=== PATIENT | male | born 1970 | race Caucasian/White ===

== ENCOUNTER → 2016-09-26 | Outpatient (CLI) | payer MEDICAID ==
[2016-09-26 09:50] LABS: ALANINE AMINOTRANSFERASE 25 U/L (21-72); ALBUMIN 4.2 g/dL (3.5-5.0); ALKALINE PHOSPHATASE 61 U/L (38-126); ANION GAP 13 (5-19); ASPARTATE AMINO TRANSFERASE 23 U/L (17-59); BILIRUBIN,TOTAL 0.3 mg/dL (0.2-1.3); BLOOD UREA NITROGEN 10 mg/dL (7-20); CALCIUM 8.9 mg/dL (8.4-10.2); CARBON DIOXIDE 20 mmol/L (22-30); CHLORIDE 97 mmol/L (98-107); CHOLESTEROL 161.85 mg/dL (0-200); CREATININE RESULT 0.62 mg/dL (0.52-1.25); Direct HDL 52 mg/dL (>40); GLUCOSE 88 mg/dL (75-110); POTASSIUM 4.6 mmol/L (3.6-5.0); SODIUM 129.5 mmol/L (137-145); TOTAL PROTEIN 6.8 g/dL (6.3-8.2); TRIGLYCERIDES 109 mg/dL (<150)
[2016-09-26 10:07] LABS: DIRECT LDL 106 mg/dL (<100)
== END ==
LOC: OD 08:19
PROVIDERS: ATTEND Internal Medicine
DX: R76.11 Nonspecific reaction to tuberculin skin test without active tuberculosis (principal); E78.00 Pure hypercholesterolemia, unspecified; I10 Essential (primary) hypertension; Z79.899 Other long term (current) drug therapy
CPT/HCPCS: 36415; 71020; 80053; 80061

== ENCOUNTER → 2017-06-23 | Outpatient (CLI) | payer MEDICAID ==
--- NOTE | 2017-06-23 17:20 | RADIOLOGY REPORT (SQ) ---
EXAM DESCRIPTION: ANKLE LEFT COMPLETE COMPLETED DATE/TIME: 06/23/2017 5:06 pm REASON FOR STUDY: PAIN IN LEFT ANKLE AND JOINTS OF LEFT FOOT M25.572 PAIN IN LEFT ANKLE AND JOINTS OF LEFT FOOT COMPARISON: None. NUMBER OF VIEWS: Three views. TECHNIQUE: AP, lateral, and oblique radiographic images acquired of the left ankle. LIMITATIONS: None. FINDINGS: MINERALIZATION: Normal. BONES: No acute fracture or dislocation. No worrisome bone lesions. JOINTS: No effusions. SOFT TISSUES: No soft tissue swelling. No foreign body. OTHER: No other significant finding. IMPRESSION: NEGATIVE STUDY OF THE LEFT ANKLE. NO RADIOGRAPHIC EVIDENCE OF ACUTE INJURY. TECHNICAL DOCUMENTATION: JOB ID: [id number] [employer]- All Rights Reserved
== END ==
LOC: OD 16:44
PROVIDERS: ATTEND Internal Medicine
DX: M25.572 Pain in left ankle and joints of left foot (principal); W19.XXXA Unspecified fall, initial encounter

== ENCOUNTER 2017-07-07 09:17 | Day surgery (SDC) | payer MEDICAID ==
[~2017-07-07 09:17] MED LIST: KETOROLAC TROMETHAMINE 0.45% 4 DROP/0.4 ML DROPERETTE OD PRN; MIDAZOLAM 2 MG/2 ML INJ ONE
[2017-07-07] MEDS: TETRACAINE HCL 0.5% OPH SOLN 0.6 ML DROPERETTE OD PRN ×2 (09:58→10:29)
[2017-07-07] MEDS: CYCLOPENTOLATE 0.2%/PHENYLEPHRINE 1% OPH SOLN 2 ML OD PRN ×3 (09:59→10:27)
[2017-07-07] MEDS: TROPICAMIDE 1% OPH SOLN 3 ML OD PRN ×3 (09:59→10:27)
[2017-07-07] MEDS: BESIFLOXACIN HCL 0.6% OPH SUSP 5 ML BOTTLE OD PRN ×4 (10:00→11:14)
[2017-07-07] MEDS ORDERED: TRYPAN BLUE 0.06 % OPH SOLN 0.5 ML DISP.SYRIN ONE (10:00)
[2017-07-07] MEDS ORDERED: LIDOCAINE 1% INJ-PF (10 MG/ML) 30 ML SDV ONE (10:01)
[2017-07-07] MEDS ORDERED: FENTANYL CITRATE INJ/PF 100 MCG/2 ML AMPUL ONE (10:25)
[2017-07-07] MEDS ORDERED: ONDANSETRON HCL INJ/PF 4 MG/2 ML SDV ONE (10:25)
[2017-07-07] MEDS ORDERED: PHENYLEPHRINE/KETOROLAC 1%-0.3% 4 ML VIAL ONE (10:42)
[2017-07-07] MEDS: LIDOCAINE 4% INJ/PF (40 MG/ML) 5 ML AMPUL OD PRN ×2 (10:45)
[2017-07-07] MEDS ORDERED: CHONDR SU A NA/HYALUR INTRAOC KIT (SURGICARE) ONE (10:45)
[2017-07-07] MEDS: BUPIVACAINE HCL 0.75% INJ/PF (7.5 MG/1 ML) 10 ML SDV OD PRN ×2 (10:45)
--- NOTE | 2017-07-07 12:03 | [facility] OPERATIVE REPORT E ---
[facility] Operative Report NAME: DENTON RAY AGE: 46Y DATE OF SURGERY: 07/07/2017 ROOM: PREOPERATIVE DIAGNOSIS: Mature cataract, right eye. POSTOPERATIVE DIAGNOSIS: Mature cataract, right eye. PROCEDURE PERFORMED: Complex cataract extraction with intraocular lens implant, right eye. SURGEON: MEY MOSQUEDA M.D. ANESTHESIA: Topical with MAC plus intraocular lidocaine. INDICATIONS FOR SURGERY: Mature cataract with no view of the fundus. Indications were complex mature cataract. No red reflex. Requiring the use of Trypan blue dye. PROCEDURE: The patient was brought to the Operating Room and placed on the operative table. Following tetracaine drops, topical anesthesia was administered. This consisted of instrument wipe pledgets soaked in a solution of 4% Xylocaine mixed with 0.75% Marcaine in a 1:2 ratio. A 2 x 1 cm pledget was placed in the superior fornix. A 1 x 1 cm pledget was placed in the inferior fornix. The eye was patched shut for 5 minutes. The patch was removed. The eye was sterilely prepped and draped in the usual manner. Lid speculum was placed in the eye. The pledgets were removed. 4-0 black silk sutures were placed around the superior and the inferior rectus muscles to be used as traction. A conjunctival peritomy was made at the 10 o'clock position. Hemostasis was obtained with bipolar cautery. A posterior limbal groove was created using a crescent knife and dissected anteriorly towards the cornea. A sharp point blade was used to create a paracentesis site at the 2 o'clock position. A 2.4 mm keratome was used to enter the anterior chamber through the groove.Following the incisions, an air bubble was placed through the side port incision and Trypan blue dye was injected inferior to the air bubble to stain the capsule. Viscoelastic was injected into the anterior chamber. An anterior capsulotomy was performed using Utrata forceps in a capsulorrhexis fashion. Hydrodissection and hydrodelineation were performed. Phacoemulsification was performed in qhcjcw-[id number]-[id number] technique. A total of 17 CDE phaco time was used. Following this, the I/A unit was used to remove residual cortex. Viscoelastic was injected into the capsular bag. Intraocular lens model SN60WF, 19.0 diopters, serial number [id number] was placed in the capsular bag. The I/A unit was used to remove residual viscoelastic. The wound was seen to be watertight under high and low pressure, and no sutures were placed. The intraocular lens was well centered. The pressure was adjusted in the eye to normal pressure. The 4-0 black silk sutures and lid speculum were removed. The eye was shielded after Besivance drops were placed. The patient tolerated the procedure well and was sent to the Recovery Room in good condition. DICTATING PHYSICIAN: MEY MOSQUEDA M.D. [id number] PHY#: [id number] ID: [id number] JOB#: [id number] ACCT: [id number] cc:MEY MOSQUEDA M.D. > MTDD
--- NOTE | 2017-07-07 12:08 | [facility] DISCHARGE SUMMARY E ---
[facility] Discharge Summary NAME: DENTON RAY AGE: 46Y ADMITTED: 07/07/2017 DISCHARGED: 07/07/2017 HOSPITAL COURSE: The patient is a 46-year-old gentleman who underwent uneventful complex cataract extraction with intraocular lens implant, right eye, on 07/07/2017. He will be discharged to home. He is instructed to resume preoperative medications, take Tylenol as needed for discomfort, to keep his eye shielded, to use Durezol, Ketorolac, and Vigamox at 3 p.m. and 8 p.m, and to follow up in my office in 1 day. DICTATING PHYSICIAN: MEY MOSQUEDA M.D. [id number] PHY#: [id number] ID: [id number] JOB#: [id number] ACCT: [id number] cc:MEY MOSQUEDA M.D. >
== END 2017-07-07 12:10 | disposition other institution (70) ==
LOC: SC 09:17
PROVIDERS: ATTEND Ophthalmology
PROC: 08RJ3JZ Replacement of Right Lens with Synthetic Substitute, Percutaneous Approach (ICD-10-PCS; principal; 2017-07-07 11:00)
DX: H25.21 Age-related cataract, morgagnian type, right eye (principal); H25.12 Age-related nuclear cataract, left eye; H52.13 Myopia, bilateral; I10 Essential (primary) hypertension; K21.9 Gastro-esophageal reflux disease without esophagitis; G20 Parkinson's disease; F99 Mental disorder, not otherwise specified; Z79.899 Other long term (current) drug therapy
CPT/HCPCS: 66982; V2632; J2250; J3490 ×7; J3010; J2405; C9447; 142

== ENCOUNTER → 2017-10-12 | Outpatient (CLI) | payer MEDICAID ==
--- NOTE | 2017-10-12 16:15 | RADIOLOGY REPORT (SQ) ---
EXAM DESCRIPTION: CHEST PA/LATERAL COMPLETED DATE/TIME: 10/12/2017 3:55 pm REASON FOR STUDY: NONSPECIFIC REACTION TO SKIN TEST W/O ACTIVE TUBERCULOSIS R76.11 NONSPECIFIC REAC TION TO SKIN TEST W/O ACTIVE TUBERCUL COMPARISON: None. NUMBER OF VIEWS: Two view. TECHNIQUE: Frontal and lateral radiographic views of the chest acquired. LIMITATIONS: None. FINDINGS: LUNGS AND PLEURA: No opacities, masses or pneumothorax. No pleural effusion. MEDIASTINUM AND HILAR STRUCTURES: No masses. No contour abnormalities. HEART AND VASCULAR STRUCTURES: Heart enlarged without failure. Aorta normal for age. BONES: No acute findings. HARDWARE: None in the chest. OTHER: No other significant finding. IMPRESSION: No acute abnormality in the chest. TECHNICAL DOCUMENTATION: JOB ID: [id number] [employer]- All Rights Reserved Reading location - IP/workstation name: [email or web address]
== END ==
LOC: OD 15:41
PROVIDERS: ATTEND Internal Medicine
DX: R76.11 Nonspecific reaction to tuberculin skin test without active tuberculosis (principal)
CPT/HCPCS: 71046

== ENCOUNTER → 2017-10-19 | Outpatient (CLI) | payer MEDICAID ==
[2017-10-19 09:31] LABS: ALANINE AMINOTRANSFERASE 39 U/L (21-72); ALBUMIN 4.5 g/dL (3.5-5.0); ALKALINE PHOSPHATASE 71 U/L (38-126); ASPARTATE AMINO TRANSFERASE 27 U/L (17-59); BILIRUBIN,DIRECT 0.2 mg/dL (0.0-0.4); BILIRUBIN,TOTAL 0.3 mg/dL (0.2-1.3); BLOOD UREA NITROGEN 17 mg/dL (7-20); CALCIUM 9.6 mg/dL (8.4-10.2); CHLORIDE 95 mmol/L (98-107); CHOLESTEROL 146.44 mg/dL (0-200); GLUCOSE 103 mg/dL (75-110); POTASSIUM 4.6 mmol/L (3.6-5.0); SODIUM 134.8 mmol/L (137-145); TOTAL PROTEIN 6.7 g/dL (6.3-8.2); TRIGLYCERIDES 80 mg/dL (<150)
[2017-10-19 09:33] LABS: ANION GAP 9 (5-19); CARBON DIOXIDE 31 mmol/L (22-30)
[2017-10-19 09:47] LABS: DIRECT LDL 79 mg/dL (<100)
== END ==
LOC: OD 07:31
PROVIDERS: ATTEND Internal Medicine
DX: E78.00 Pure hypercholesterolemia, unspecified (principal); I10 Essential (primary) hypertension; Z79.899 Other long term (current) drug therapy
CPT/HCPCS: 36415; 80053; 80061

== ENCOUNTER → 2018-06-16 | Outpatient (CLI) | payer MEDICAID ==
--- NOTE | 2018-06-16 16:29 | RADIOLOGY REPORT (SQ) ---
EXAM DESCRIPTION: KNEE RIGHT 4 VIEWS COMPLETED DATE/TIME: 06/16/2018 4:20 pm REASON FOR STUDY: PAIN IN RT KNEE M25.561 PAIN IN RIGHT KNEE injured yesterday, twisted right knee with continued pain COMPARISON: None. NUMBER OF VIEWS: Four views. TECHNIQUE: AP, lateral, and both oblique radiographic images acquired of the right knee. LIMITATIONS: None. FINDINGS: MINERALIZATION: Normal. BONES: No acute fracture or dislocation. No worrisome bone lesions. JOINT: No effusion. SOFT TISSUES: No soft tissue swelling. No radio-opaque foreign body. OTHER: No other significant finding. IMPRESSION: NEGATIVE STUDY OF THE RIGHT KNEE. NO RADIOGRAPHIC EVIDENCE OF ACUTE INJURY. TECHNICAL DOCUMENTATION: JOB ID: [id number] [employer]- All Rights Reserved Reading location - IP/workstation name: [email or web address]
== END ==
LOC: OD 15:50
PROVIDERS: ATTEND Internal Medicine
DX: M25.561 Pain in right knee (principal)

== ENCOUNTER 2018-11-29 16:14 | Emergency (ER) | payer MEDICAID ==
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
[2018-11-29 17:28] LABS: APPEARANCE,URINE CLEAR; BILIRUBIN,URINE NEGATIVE (NEGATIVE); COLOR,URINE STRAW; GLUCOSE, URINE NEGATIVE (NEGATIVE); KETONES,URINE NEGATIVE (NEGATIVE); LEUKOCYTE ESTERASE,URINE NEGATIVE (NEGATIVE); NITRITE,URINE NEGATIVE (NEGATIVE); PROTEIN,URINE NEGATIVE (NEGATIVE); URINE SPECIFIC GRAVITY 1.006; UROBILINOGEN,URINE NEGATIVE mg/dL (<2.0)
[2018-11-29 17:37] LABS: ABSOLUTE EOSINOPHILS # (AUTO) 0.2 10^3/uL (0.0-0.6); ABSOLUTE LYMPHOCYTES (AUTO) 1.9 10^3/uL (0.5-4.7); ABSOLUTE MONOCYTES (AUTO) 0.6 10^3/uL (0.1-1.4); ABSOLUTE NEUT (AUTO) 5.7 10^3/uL (1.7-8.2); BASOPHILS % (AUTO) 0.4 % (0-2); EOSINOPHILS % (AUTO) 2.8 % (0-6); HEMOGLOBIN 13.8 g/dL (13.5-17.0); LYMPHOCYTES % (AUTO) 22.8 % (13-45); MEAN CORPUSCULAR HEMOGLOBIN 29.6 pg (27.0-33.4); MEAN CORPUSCULAR HGB CONC 33.8 g/dL (32.0-36.0); MEAN CORPUSCULAR VOLUME 88 fl (80-97); MONOCYTES % (AUTO) 6.6 % (3-13); PLATELET COUNT 194 10^3/uL (150-450); RED BLOOD COUNT 4.67 10^6/uL (4.35-5.55); RED CELL DISTRIBUTION WIDTH 13.5 % (11.5-14.0); SEGMENTED NEUTROPHILS % (AUTO) 67.4 % (42-78); TOTAL CELLS COUNTED % (AUTO) 100 %; WHITE BLOOD COUNT 8.5 10^3/uL (4.0-10.5)
[2018-11-29 17:47] LABS: URINE AMPHETAMINES SCREEN NEGATIVE; URINE BARBITURATES SCREEN NEGATIVE; URINE BENZODIAZEPINES SCREEN NEGATIVE; URINE COCAINE SCREEN NEGATIVE; URINE MARIJUANA (THC) SCREEN NEGATIVE; URINE METHADONE SCREEN NEGATIVE; URINE PHENCYCLIDINE SCREEN NEGATIVE
[2018-11-29 17:57] LABS: ALANINE AMINOTRANSFERASE 29 U/L (21-72); ALBUMIN 4.3 g/dL (3.5-5.0); ALKALINE PHOSPHATASE 88 U/L (38-126); ANION GAP 12 (5-19); ASPARTATE AMINO TRANSFERASE 21 U/L (17-59); BILIRUBIN,DIRECT 0.2 mg/dL (0.0-0.4); BILIRUBIN,TOTAL 0.3 mg/dL (0.2-1.3); BLOOD UREA NITROGEN 8 mg/dL (7-20); CALCIUM 9.7 mg/dL (8.4-10.2); CARBON DIOXIDE 25 mmol/L (22-30); CHLORIDE 98 mmol/L (98-107); GLUCOSE 134 mg/dL (75-110); POTASSIUM 4.2 mmol/L (3.6-5.0); SODIUM 135.1 mmol/L (137-145); TOTAL PROTEIN 6.9 g/dL (6.3-8.2)
[2018-11-29 17:58] LABS: ACETAMINOPHEN < 10 ug/mL (10-30); ALCOHOL < 10 mg/dL (NONE DETECTED); SALICYLATE < 1.0 mg/dL (2.0-20.0)
--- NOTE | 2018-11-29 18:52 | EKG REPORT ---
SEVERITY:- NORMAL ECG - SINUS RHYTHM : Confirmed by: Cm Castellano MD 29-Nov-2018 18:51:19
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
[2018-11-30 14:12] VITALS: BP 126/64
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
== END 2018-11-30 15:10 | disposition home or self-care (01) ==
LOC: ER 16:14
DX: F25.0 Schizoaffective disorder, bipolar type (principal); F79 Unspecified intellectual disabilities; R45.6 Violent behavior; R45.4 Irritability and anger; I25.10 Atherosclerotic heart disease of native coronary artery without angina pectoris; I10 Essential (primary) hypertension; Z79.899 Other long term (current) drug therapy
CPT/HCPCS: 36415; 80053; 80307; 81001; 85025; 93005; 93010; 99285

== ENCOUNTER 2019-03-22 21:47 | Emergency (ER) | payer MEDICAID ==
[2019-03-22] MEDS ORDERED: DIPH/PERTUSS(ACELL)/TETANUS VAC/PF 0.5 ML SYR (>=10YO) IM ONE (22:34)
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
[2019-03-22 23:32] LABS: AMORPHOUS SEDIMENT,URINE TRACE /HPF; APPEARANCE,URINE SLIGHTLY-CLOUDY; BILIRUBIN,URINE NEGATIVE (NEGATIVE); COLOR,URINE YELLOW; GLUCOSE, URINE NEGATIVE (NEGATIVE); KETONES,URINE NEGATIVE (NEGATIVE); LEUKOCYTE ESTERASE,URINE NEGATIVE (NEGATIVE); NITRITE,URINE NEGATIVE (NEGATIVE); PROTEIN,URINE NEGATIVE (NEGATIVE); URINE SPECIFIC GRAVITY 1.012; UROBILINOGEN,URINE NEGATIVE mg/dL (<2.0)
[2019-03-22 23:46] LABS: ABSOLUTE BASOPHILS # (AUTO) 0.1 10^3/uL (0.0-0.2); ABSOLUTE EOSINOPHILS # (AUTO) 1.1 10^3/uL (0.0-0.6); ABSOLUTE LYMPHOCYTES (AUTO) 2.7 10^3/uL (0.5-4.7); ABSOLUTE MONOCYTES (AUTO) 0.5 10^3/uL (0.1-1.4); ABSOLUTE NEUT (AUTO) 4.1 10^3/uL (1.7-8.2); BASOPHILS % (AUTO) 0.6 % (0-2); HEMATOCRIT 38.1 % (37.9-51.0); HEMOGLOBIN 12.8 g/dL (13.5-17.0); LYMPHOCYTES % (AUTO) 32.2 % (13-45); MEAN CORPUSCULAR HEMOGLOBIN 29.8 pg (27.0-33.4); MEAN CORPUSCULAR HGB CONC 33.5 g/dL (32.0-36.0); MEAN CORPUSCULAR VOLUME 89 fl (80-97); MONOCYTES % (AUTO) 5.8 % (3-13); PLATELET COUNT 170 10^3/uL (150-450); RED BLOOD COUNT 4.27 10^6/uL (4.35-5.55); RED CELL DISTRIBUTION WIDTH 13.8 % (11.5-14.0); SEGMENTED NEUTROPHILS % (AUTO) 48.4 % (42-78); TOTAL CELLS COUNTED % (AUTO) 100 %; WHITE BLOOD COUNT 8.5 10^3/uL (4.0-10.5)
[2019-03-22 23:47] LABS: URINE AMPHETAMINES SCREEN NEGATIVE; URINE BARBITURATES SCREEN NEGATIVE; URINE BENZODIAZEPINES SCREEN NEGATIVE; URINE COCAINE SCREEN NEGATIVE; URINE MARIJUANA (THC) SCREEN NEGATIVE; URINE METHADONE SCREEN NEGATIVE; URINE PHENCYCLIDINE SCREEN NEGATIVE
[2019-03-23] LABS: ALBUMIN 4.3 g/dL (3.5-5.0); ALKALINE PHOSPHATASE 79 U/L (38-126); ANION GAP 10 (5-19); ASPARTATE AMINO TRANSFERASE 22 U/L (17-59); BILIRUBIN,DIRECT 0.1 mg/dL (0.0-0.4); BILIRUBIN,TOTAL 0.2 mg/dL (0.2-1.3); BLOOD UREA NITROGEN 13 mg/dL (7-20); CALCIUM 9.9 mg/dL (8.4-10.2); CARBON DIOXIDE 28 mmol/L (22-30); CHLORIDE 94 mmol/L (98-107); GLUCOSE 120 mg/dL (75-110); POTASSIUM 4.2 mmol/L (3.6-5.0); TOTAL PROTEIN 6.9 g/dL (6.3-8.2)
[2019-03-23 00:01] LABS: ACETAMINOPHEN < 10 ug/mL (10-30); ALCOHOL < 10 mg/dL (NONE DETECTED); SALICYLATE < 1.0 mg/dL (2.0-20.0)
[2019-03-23 08:28] VITALS: BP 131/67
--- NOTE | 2019-03-23 12:18 | ER Document Report ---
Doctor's Note Notes: 03/23/19 12:17 Patient seen and examined, has no complaints, feeling quite well, laceration to the right wrist is healing well, is more of a superficial abrasion. Patient is eager to go back to [facility]. We are still in discussions with [facility] as to how he can return there. We have made some adjustments to his medications. Patient here is receiving Trileptal, Latuda and Topamax. GENERAL: Alert, interacts well. No acute distress. HEAD: Normocephalic, atraumatic EYES: Pupils equal, round and reactive to light, extraocular movements intact. ENT: Oral mucosa moist, tongue midline. NECK: Full range of motion, supple, trachea midline. LUNGS: no respiratory distress. EXTREMITIES: Moves all 4 extremities spontaneously, no edema. No cyanosis. NEUROLOGICAL: Alert and oriented x3, normal speech. PSYCH: Normal mood, normal affect. SKIN: Warm, Dry, normal turgor, superficial abrasion volar aspect left wrist.
[2019-03-23] MEDS ORDERED: LURASIDONE HCL 40 MG TABLET PO SCH (12:30)
[2019-03-23] MEDS ORDERED: TOPIRAMATE 25 MG TABLET PO SCH (12:30)
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
[2019-03-23] MEDS ORDERED: LURASIDONE HCL 40 MG TABLET PO ONE (13:30)
[2019-03-23] MEDS ORDERED: OXCARBAZEPINE 150 MG TABLET PO SCH (14:00)
[2019-03-24] MEDS ORDERED: LURASIDONE HCL 40 MG TABLET PO SCH (08:00)
--- NOTE | 2019-03-24 14:14 | EKG REPORT ---
SEVERITY:- NORMAL ECG - SINUS RHYTHM : Confirmed by: Dominick Casas 24-Mar-2019 14:13:40
== END 2019-03-23 13:06 | disposition home or self-care (01) ==
LOC: ER 21:47
DX: F25.9 Schizoaffective disorder, unspecified (principal); S60.811A Abrasion of right wrist, initial encounter; X78.9XXA Intentional self-harm by unspecified sharp object, initial encounter; R45.850 Homicidal ideations; R45.851 Suicidal ideations; Z91.5 Personal history of self-harm; E78.00 Pure hypercholesterolemia, unspecified; I10 Essential (primary) hypertension
CPT/HCPCS: 93005; 36415; 80307 ×4; 85025; 80053; 81001; 90715; 93010; J3490 ×2

== ENCOUNTER 2019-06-24 09:40 | Observation (INO) | payer MEDICAID, OTHER ==
[2019-06-24 10:46] LABS: ABSOLUTE EOSINOPHILS # (AUTO) 0.3 10^3/uL (0.0-0.6); ABSOLUTE LYMPHOCYTES (AUTO) 1.8 10^3/uL (0.5-4.7); ABSOLUTE MONOCYTES (AUTO) 0.7 10^3/uL (0.1-1.4); ABSOLUTE NEUT (AUTO) 5.1 10^3/uL (1.7-8.2); BASOPHILS % (AUTO) 0.2 % (0-2); EOSINOPHILS % (AUTO) 3.4 % (0-6); HEMATOCRIT 44.5 % (37.9-51.0); HEMOGLOBIN 15.1 g/dL (13.5-17.0); LYMPHOCYTES % (AUTO) 22.9 % (13-45); MEAN CORPUSCULAR HEMOGLOBIN 30.5 pg (27.0-33.4); MEAN CORPUSCULAR HGB CONC 33.9 g/dL (32.0-36.0); MEAN CORPUSCULAR VOLUME 90 fl (80-97); MONOCYTES % (AUTO) 8.5 % (3-13); PLATELET COUNT 159 10^3/uL (150-450); RED BLOOD COUNT 4.95 10^6/uL (4.35-5.55); RED CELL DISTRIBUTION WIDTH 13.5 % (11.5-14.0); TOTAL CELLS COUNTED % (AUTO) 100 %; WHITE BLOOD COUNT 7.8 10^3/uL (4.0-10.5)
[2019-06-24 11:06] LABS: ALBUMIN 4.6 g/dL (3.5-5.0); ALKALINE PHOSPHATASE 86 U/L (38-126); ANION GAP 10 (5-19); ASPARTATE AMINO TRANSFERASE 22 U/L (17-59); BILIRUBIN,DIRECT 0.2 mg/dL (0.0-0.4); BILIRUBIN,TOTAL 0.3 mg/dL (0.2-1.3); BLOOD UREA NITROGEN 12 mg/dL (7-20); CALCIUM 9.9 mg/dL (8.4-10.2); CARBON DIOXIDE 30 mmol/L (22-30); CHLORIDE 98 mmol/L (98-107); CREATINE KINASE 114 U/L (55-170); GLUCOSE 110 mg/dL (75-110); POTASSIUM 4.1 mmol/L (3.6-5.0); TOTAL PROTEIN 7.7 g/dL (6.3-8.2)
--- NOTE | 2019-06-24 11:11 | ER Document Report ---
Entered by OTTO RIVERA SCRIBE 06/24/19 1058 Acting as scribe for:JEFFREY FOLEY IV, MD ED Syncope and Near Syncope - General Chief Complaint: Syncope Stated Complaint: FALL/SYNCOPE Time Seen by Provider: 06/24/19 10:56 Primary Care Provider: CORTNEY MEHTA MD [Primary Care Provider] - Follow up as needed Mode of Arrival: Medic Information source: Legal Guardian Cannot obtain history due to: Dementia Notes: This 48-year-old developmentally delayed male patient presents to the emergency department today with complaints of a syncopal event that occurred just prior to arrival. Patient has baseline dementia so history is being given by caregiver (Perla) at bedside. Perla reports that the patient is "high functioning" at baseline, reporting that he works x3 days a week at [employer]. Perla reports that the patient now only responding to noxious stimuli is very different from his baseline. Caregiver states that the patient seemed to be unsteady on his feet when he was ambulating just prior to passing out. History is limited. TRAVEL OUTSIDE OF THE [place] IN LAST 30 DAYS: No - Related Data Allergies/Adverse Reactions: No Known Allergies Allergy (Verified 01/02/19 09:46) Past Medical History - General Information source: Legal Guardian Cannot obtain history due to: Dementia - Social History Smoking Status: Never Smoker Cigarette use (# per day): No Frequency of alcohol use: None Lives with: [facility] Family History: Reviewed & Not Pertinent Patient has suicidal ideation: No Patient has homicidal ideation: No - Past Medical History Cardiac Medical History: Reports: Hx Coronary Artery Disease, Hx Hyperc holesterolemia, Hx Hypertension Psychiatric Medical History: Reports: Hx Depression - Immunizations Hx Diphtheria, Pertussis, Tetanus Vaccination: Yes Review of Systems - Review of Systems -: Yes ROS unobtainable due to patient's medical condition - dementia at baseline Physical Exam - Vital signs Vitals: Temp Resp BP Pulse Ox 97.6 F 15 135/97 H 96 06/24/19 10:18 06/24/19 10:18 06/24/19 10:18 06/24/19 10:18 - Notes Notes: Physical Exam: General: Hypersomnolent, responds to noxious and painful stimuli only. HEENT: Normocephalic. Atraumatic. PERRL. Oropharynx clear. Neck: Supple. Non-tender. Respiratory: No respiratory distress. Clear and equal breath sounds bilaterally. Cardiovascular: Regular rate and rhythm. Abdominal: Normal Inspection. Non-tender. No distension. Normal Bowel Sounds. Back: No gross abnormalities. Extremities: Moves all four extremities. Upper extremities: Normal inspection. Normal ROM. Lower extremities: Normal inspection. No edema. Normal ROM. Neurological: Dementia. Decreased level of responsiveness according to caregiver at bedside. Psychological: unable to assess Skin: Warm. Dry. Normal color. Course - Re-evaluation Re-evalutation: 06/24/19 13:21 Patient is currently arousable to voice but speech is slurred. He has no focal findings on his neurologic exam other than his slurred speech. Eye contact is good. - Vital Signs Vital signs: Temp Pulse Resp BP Pulse Ox 97.6 F 15 135/97 H 96 06/24/19 10:42 06/24/19 10:42 06/24/19 10:18 06/24/19 10:42 06/24/19 13:22 Vital signs reviewed by this MD. - Laboratory Result Diagrams: 06/24/19 10:25 06/24/19 10:25 - Diagnostic Test Radiology reviewed: Reports reviewed - EKG Interpretation by Me Additional EKG results interpreted by me: 06/24/19 12:08 EKG performed on 06/24/2019 was interpreted by this . Findings: Normal sinus rhythm, rate 85, P waves preceding QRS complexes, QRS complexes appear narrow, ST segments do not appear to be elevated or depressed in a pattern to suggest ischemia, injury or infarction. Impression normal sinus rhythm with nonspecific ST segments. - Consults DR ESTEVEZ Time consulted: 13:20 Reason for consultation: 06/24/19 13:23 Presyncope, dystaxia new onset Consulted provider: will see as inpatient Discharge - Discharge Clinical Impression: Pre-syncope, Ataxia Condition: Good Disposition: ADMITTED OBSERVATION Admitting Provider: Valencia (Hospitalist) Unit Admitted: Telemetry Referrals: CORTNEY MEHTA MD [Primary Care Provider] - Follow up as needed I personally performed the services described in the documentation, reviewed and edited the documentation which was dictated to the scribe in my presence, and it accurately records my words and actions.
[2019-06-24 11:18] LABS: CREATINE KINASE MB 3.37 ng/mL (<4.55)
[2019-06-24 11:20] LABS: TROPONIN I < 0.012 ng/mL
--- NOTE | 2019-06-24 12:16 | RADIOLOGY REPORT (SQ) ---
EXAM DESCRIPTION: CT HEAD WITHOUT COMPLETED DATE/TIME: 06/24/2019 11:48 am REASON FOR STUDY: dystaxia, fall onto face COMPARISON: None. TECHNIQUE: Axial images acquired through the brain without intravenous contrast. Images reviewed wit h bone, brain and subdural windows. Images stored on PACS. All CT scanners at this facility use dose modulation, iterative reconstruction, and/or weight based d osing when appropriate to reduce radiation dose to as low as reasonably achievable (ALARA). [facility]: Dose Right [facility]: CareDose [facility]: Dose Right [facility]: Teradose 4D [facility]: Smart Revolights RADIATION DOSE: CT Rad equipment meets quality standard of care and radiation dose reduction techniq ues were employed. CTDIvol: 53.2 mGy. DLP: 1070 mGy-cm.. LIMITATIONS: None. FINDINGS: VENTRICLES: Normal size and contour. CEREBRUM: No masses. No hemorrhage. No midline shift. Age appropriate white matter. No evidence for a cute infarction. CEREBELLUM: No masses. No hemorrhage. No alteration of density. No evidence for acute infarction. EXTRA-AXIAL SPACES: No fluid collections. ORBITS AND GLOBE: No intra- or extraconal masses. Normal contour of globe without masses. CALVARIUM: No fracture. PARANASAL SINUSES: No fluid or mucosal thickening. SOFT TISSUES: No mass or hematoma. OTHER: No other significant finding. IMPRESSION: NO ACUTE INTRACRANIAL FINDINGS. EVIDENCE OF ACUTE STROKE: NO. TECHNICAL DOCUMENTATION: JOB ID: [id number] [place]-72 Quality ID # 436: Final reports with documentation of one or more dose reduction techniques (e.g., Au tomated exposure control, adjustment of the mA and/or kV according to patient size, use of iterative reconstruction technique) 2010 [employer]- All Rights Reserved Reading location - IP/workstation name: [email or web address]
--- NOTE | 2019-06-24 12:19 | RADIOLOGY REPORT (SQ) ---
EXAM DESCRIPTION: CT FACIAL AREA WITHOUT COMPLETED DATE/TIME: 06/24/2019 11:48 am REASON FOR STUDY: dystaxia, fall onto face COMPARISON: None. TECHNIQUE: Noncontrasted images through the facial bones and orbits windowed for bone and soft tissu e. Additional coronal and sagittal reconstructed images reviewed. All images stored on PACS. All CT scanners at this facility use dose modulation, iterative reconstruction, and/or weight based d osing when appropriate to reduce radiation dose to as low as reasonably achievable (ALARA). [facility]: Dose Right [facility]: CareDose [facility]: Dose Right [facility]: Teradose 4D [facility]: Smart S[employer] RADIATION DOSE: CT Rad equipment meets quality standard of care and radiation dose reduction techniq ues were employed. CTDIvol: 30.4 mGy. DLP: 604 mGy-cm. mGy. LIMITATIONS: None. FINDINGS: FACIAL BONES: No fracture or bone lesion. ORBITS: Intact. No fracture. Symmetric intact globes and retroorbital soft tissues. PARANASAL SINUSES: Clear. No significant mucosal thickening, mass or fluid. No nasal polyps. Maxill silvano sinus outlets are patent. SOFT TISSUES: No mass or edema. INFERIOR BRAIN: Limited view. No acute findings. OTHER: No other significant finding. IMPRESSION: NO ACUTE FINDINGS. TECHNICAL DOCUMENTATION: JOB ID: [id number] [place]-72 Quality ID # 436: Final reports with documentation of one or more dose reduction techniques (e.g., Au tomated exposure control, adjustment of the mA and/or kV according to patient size, use of iterative reconstruction technique) 2010 [employer]- All Rights Reserved Reading location - IP/workstation name: [email or web address]
--- NOTE | 2019-06-24 12:24 | RADIOLOGY REPORT (SQ) ---
EXAM DESCRIPTION: CT CERVICAL SPINE WITHOUT COMPLETED DATE/TIME: 06/24/2019 11:48 am REASON FOR STUDY: dystaxia, fall onto face COMPARISON: None. TECHNIQUE: Axial images acquired through the cervical spine without intravenous contrast. Images re viewed with lung, soft tissue and bone windows. Reconstructed coronal and sagittal MPR images review ed. Images stored on PACS. All CT scanners at this facility use dose modulation, iterative reconstruction, and/or weight based d osing when appropriate to reduce radiation dose to as low as reasonably achievable (ALARA). [facility]: Dose Right [facility]: CareDose [facility]: Dose Right [facility]: Teradose 4D [facility]: Smart [employer] RADIATION DOSE: CT Rad equipment meets quality standard of care and radiation dose reduction techniq ues were employed. CTDIvol: 22.6 mGy. DLP: 462 mGy-cm. mGy. LIMITATIONS: None. FINDINGS: ALIGNMENT: Anatomic. MINERALIZATION: Normal. VERTEBRAL BODIES: No fractures or dislocation. DISCS: Multilevel disc space narrowing with osteophytes. FACETS, LATERAL MASSES, POSTERIOR ELEMENTS: Facet arthropathy. No fractures. No dislocation. No ac confed[place] sal[place] findings. HARDWARE: None in the spine. VISUALIZED RIBS: No fractures. LUNG APICES AND SOFT TISSUES: No significant or acute findings. OTHER: No other significant finding. IMPRESSION: NO ACUTE FINDINGS. TECHNICAL DOCUMENTATION: JOB ID: [id number] [place]-72 Quality ID # 436: Final reports with documentation of one or more dose reduction techniques (e.g., Au tomated exposure control, adjustment of the mA and/or kV according to patient size, use of iterative reconstruction technique) 2010 [employer]- All Rights Reserved Reading location - IP/workstation name: [email or web address]
[2019-06-24 12:30] LABS: APPEARANCE,URINE CLEAR; BILIRUBIN,URINE NEGATIVE (NEGATIVE); COLOR,URINE YELLOW; GLUCOSE, URINE NEGATIVE (NEGATIVE); KETONES,URINE NEGATIVE (NEGATIVE); LEUKOCYTE ESTERASE,URINE NEGATIVE (NEGATIVE); NITRITE,URINE NEGATIVE (NEGATIVE); PROTEIN,URINE NEGATIVE (NEGATIVE); URINE SPECIFIC GRAVITY 1.009; UROBILINOGEN,URINE NEGATIVE mg/dL (<2.0)
[2019-06-24 12:52] LABS: URINE AMPHETAMINES SCREEN NEGATIVE; URINE BARBITURATES SCREEN NEGATIVE; URINE BENZODIAZEPINES SCREEN NEGATIVE; URINE COCAINE SCREEN NEGATIVE; URINE MARIJUANA (THC) SCREEN NEGATIVE; URINE METHADONE SCREEN NEGATIVE; URINE PHENCYCLIDINE SCREEN NEGATIVE
--- NOTE | 2019-06-24 12:58 | EKG REPORT ---
SEVERITY:- NORMAL ECG - SINUS RHYTHM : Confirmed by: Jodie Woodard MD 24-Jun-2019 12:57:40
[2019-06-24 14:56] LABS: VENOUS BLOOD BASE EXCESS 4.1 mmol/L; VENOUS BLOOD HCO3 32.8 mmol/L (20-32); VENOUS BLOOD PH 7.31 (7.30-7.42)
[2019-06-24 15:01] LABS: VENOUS BLOOD PCO2 66.9 mmHg (35-63)
[2019-06-24 16:00] LABS: ARTERIAL BLOOD BASE EXCESS 1.2 mmol/L; ARTERIAL BLOOD H2CO3 1.62 mmol/L (1.05-1.35); ARTERIAL BLOOD HCO3 28.2 mmol/L (20-24); ARTERIAL BLOOD O2 SATURATION 93.7 % (94-98); ARTERIAL BLOOD PCO2 53.9 mmHg (35-45); ARTERIAL BLOOD PH 7.34 (7.35-7.45); ARTERIAL BLOOD PO2 73.4 mmHg (80-100); ARTERIAL BLOOD TOTAL CO2 29.9 mmol/L (23-27)
[2019-06-24 16:03] LABS: ARTERIAL BLOOD FIO2 ROOM AIR
--- NOTE | 2019-06-24 16:08 | PDOC H&P ---
History of Present Illness Admission Date/PCP: 06/24/19 13:39 CORTNEY MEHTA MD Patient complains of: lethargy History of Present Illness: DENTON RAY is a 48 year old male with a past medical history of developmental delay, schizoaffective disorder, Parkinson's disorder, ROSCOE on CPAP, hypertension and hyperlipidemia who was brought in due to increasing lethargy. Patient lives in a residential facility and has a medical provider/brick kiln burner. History is mostly obtained from patient's day brick kiln burner. She says that he was at his baseline until yesterday when she has noticed that patient has been lethargic and has been significantly more worse Tom P. She says this is very unusual for him as he is usually very alert and communicative. She says that he was also more restless yesterday. She has noticed that he has been unsteady on his feet and has been "wobbly" since yesterday. She says that they were on their way to his PCP to have him evaluated today. However under way out, patient was noted to be very unsteady on his feet again and fell. She denies syncope, seizure-like activity, urinary or fecal incontinence. Upon encounter, patient is sleeping and snoring. He is arousable and is oriented to person and place. Patient's brick kiln burner says that he is usually very awake and very talkative at this time of the day. She says that patient does not have family in [place]. Patient's surrogate medical decision maker her is his mother who is in [place]. She says the facility will contact his mother so she can give us her contact details. Past Medical History Cardiac Medical History: Reports: Coronary Artery Disease, Hyperlipidema, Hypertension Denies: Myocardial Infarction Pulmonary Medical History: Denies: Asthma, Bronchitis, Chronic Obstructive Pulmonary Disease (COPD), Pneumonia, Tuberculosis Neurological Medical History: Denies: Seizures - PARKINSON'S GI Medical History: Denies: Hepatitis, Hiatal Hernia Musculoskeltal Medical History: Denies: Arthritis Psychiatric Medical History: Reports: Depression Hematology: Denies: Anemia, Sickle Cell Disease Past Surgical History Past Surgical History: Denies: Pacemaker Social History Lives with: Assisted Smoking Status: Never Smoker Family History Family History: Reviewed & Not Pertinent Parental Family History Reviewed: Yes - No premature CAD Children Family History Reviewed: No Sibling(s) Family History Reviewed.: No Medication/Allergy Home Medications: Acetaminophen [Tylenol 325 mg Tablet] 500 mg PO Q6H 06/24/19 Bismuth Subsalicylate [Maalox] 1 dose PO DAILYP PRN 06/24/19 Carbidopa/Levodopa/Entacapone [Carbidopa-Levodopa 75 mg-Enta] 1 each PO TID 06/24/19 Desmopressin Acetate 0.4 mg PO QHS 06/24/19 Diphenhydramine HCl [Banophen] 50 mg PO TID 06/24/19 Escitalopram Oxalate [Lexapro] 20 mg PO QAM 06/24/19 Furosemide [Lasix 40 mg Tablet] 40 mg PO QAM 06/24/19 Guaifenesin/D-Methorphan Hb [Robitussin Dm S-F Cough Syrup] 10 ml PO Q6H 06/24/19 Guanfacine HCl 1 mg PO TID 06/24/19 Lisinopril [Prinivil 10 mg Tablet] 10 mg PO QAM 06/24/19 Loperamide HCl [Anti-Diarrheal] 2 mg PO DAILYP PRN 06/24/19 Magnesium Hydroxide [Milk of Magnesia] 1 each PO QHS 06/24/19 Mesalamine [Lialda] 1.2 gm PO QAM 06/24/19 Oxcarbazepine [Trileptal] 600 mg PO BID 06/24/19 Quetiapine Fumarate [Seroquel] 200 mg PO QAM 06/24/19 Quetiapine Fumarate [Seroquel] 600 mg PO QHS 06/24/19 Topiramate [Topamax 100 mg Tablet] 100 mg PO BID 06/24/19 Trihexyphenidyl HCl [Artane 5 mg Tablet] 5 mg PO Q12 06/24/19 Allergies/Adverse Reactions: No Known Allergies Allergy (Verified 01/02/19 09:46) Review of Systems All systems: reviewed and no additional remarkable complaints except as stated - As mentioned in HPI Physical Exam Vital Signs: Temp Pulse Resp BP Pulse Ox 97.6 F 15 135/97 H 96 06/24/19 10:42 06/24/19 10:42 06/24/19 10:18 06/24/19 10:42 General appearance: PRESENT: no acute distress, obese Head exam: PRESENT: atraumatic, normocephalic Eye exam: PRESENT: conjunctiva pink, EOMI, PERRLA. ABSENT: scleral icterus Ear exam: PRESENT: normal external ear exam Mouth exam: PRESENT: moist, tongue midline Neck exam: ABSENT: carotid bruit, JVD, lymphadenopathy, thyromegaly Respiratory exam: PRESENT: clear to auscultation thien. ABSENT: rales, rhonchi, wheezes Cardiovascular exam: PRESENT: RRR. ABSENT: diastolic murmur, rubs, systolic murmur Pulses: PRESENT: normal dorsalis pedis pul GI/Abdominal exam: PRESENT: normal bowel sounds, soft. ABSENT: distended, guarding, mass, organolmegaly, rebound, tenderness Rectal exam: PRESENT: deferred Neurological exam: PRESENT: alert, awake, oriented to person, oriented to place, CN II-XII grossly intact. ABSENT: motor sensory deficit Results Laboratory Results: 06/24/19 10:25 06/24/19 10:25 06/24/19 06/24/19 06/24/19 10:25 10:25 12:02 WBC 7.8 RBC 4.95 Hgb 15.1 Hct 44.5 MCV 90 MCH 30.5 MCHC 33.9 RDW 13.5 Plt Count 159 Seg Neutrophils % 65.0 Sodium 137.7 Potassium 4.1 Chloride 98 Carbon Dioxide 30 Anion Gap 10 BUN 12 Creatinine 1.00 Est GFR ( Amer) > 60 Glucose 110 Calcium 9.9 Total Bilirubin 0.3 AST 22 Alkaline Phosphatase 86 Ammonia Total Protein 7.7 Albumin 4.6 Urine Color YELLOW Urine Appearance CLEAR Urine pH 6.0 Ur Specific [place] 1.009 Urine Protein NEGATIVE Urine Glucose (UA) NEGATIVE Urine Ketones NEGATIVE Urine Blood NEGATIVE Urine Nitrite NEGATIVE Ur Leukocyte Esterase NEGATIVE Urine WBC (Auto) 1 06/24/19 06/24/19 12:02 12:57 WBC RBC Hgb Hct MCV MCH MCHC RDW Plt Count Seg Neutrophils % Sodium Potassium Chloride Carbon Dioxide Anion Gap BUN Creatinine Est GFR ( Amer) Glucose Calcium Total Bilirubin AST Alkaline Phosphatase Ammonia Cancelled < 8.7 L Total Protein Albumin Urine Color Urine Appearance Urine pH Ur Specific [place] Urine Protein Urine Glucose (UA) Urine Ketones Urine Blood Urine Nitrite Ur Leukocyte Esterase Urine WBC (Auto) 06/24/19 06/24/19 10:25 10:25 Creatine Kinase 114 CK-MB (CK-2) 3.37 Troponin I < 0.012 Impressions: Facial Bones CT 06/24/19 11:08 IMPRESSION: NO ACUTE FINDINGS. Head CT 06/24/19 11:08 IMPRESSION: NO ACUTE INTRACRANIAL FINDINGS. EVIDENCE OF ACUTE STROKE: NO. Cervical Spine CT 06/24/19 11:09 IMPRESSION: NO ACUTE FINDINGS. Assessment and Plan - Diagnosis (1) Acute encephalopathy Is this a current diagnosis for this admission?: Yes Plan: Initial work-up has been unremarkable. UDS is negative. CT imaging has been unrevealing. BMP is also normal. Will check a TSH. Also order a VBG to assess for CO2 retention. Stippler says that patient has ROSCOE and he is compliant with his CPAP. She is unsure however how long the patient been on CPAP and if he had any recent titration study done. (2) ROSCOE (obstructive sleep apnea) Is this a current diagnosis for this admission?: Yes Plan: BiPAP at night or when asleep. (3) HTN (hypertension) Is this a current diagnosis for this admission?: Yes (4) Parkinsonism Is this a current diagnosis for this admission?: Yes (5) Schizoaffective disorder Qualifiers: Schizoaffective disorder type: unspecified Qualified Code(s): F25.9 - Schizoaffective disorder, unspecified Is this a current diagnosis for this admission?: Yes - Time Time Spent with patient: 25-34 minutes
[2019-06-25] MEDS ORDERED: BISMUTH SUBSALICYLATE PO PRN (08:10)
[2019-06-25] MEDS: TOPIRAMATE 100 MG TABLET PO SCH ×2 (09:03→17:08)
[2019-06-25] MEDS: GUAIFENESIN/D-METHORPHAN (200-20 MG) SYRUP 10 ML PO SCH ×3 (09:03→20:24)
[2019-06-25] MEDS ORDERED: MAG HYDROX/AL HYDROX/SIMETH SUSP 30 ML UDCUP PO PRN (09:14)
[2019-06-25] MEDS ORDERED: LEVODOPA PO SCH (10:00)
[2019-06-25] MEDS ORDERED: (PENDING PHARMACY ID) (Guanfacine Hcl [Guanfacine Hcl] 1 MG) PO SCH (10:00)
[2019-06-25] MEDS ORDERED: [UNRECOGNIZED DRUG - OTHER] PO SCH (10:00)
[2019-06-25] MEDS ORDERED: ENTACAPONE PO SCH (10:00)
[2019-06-25] MEDS ORDERED: (PENDING PHARMACY ID) (Oxcarbazepine [Trileptal] 600 MG) PO SCH (10:00)
[2019-06-25] MEDS ORDERED: CARBIDOPA PO SCH (10:00)
[2019-06-25 13:31] LABS: ARTERIAL BLOOD BASE EXCESS 2.5 mmol/L; ARTERIAL BLOOD H2CO3 1.33 mmol/L (1.05-1.35); ARTERIAL BLOOD HCO3 27.6 mmol/L (20-24); ARTERIAL BLOOD O2 SATURATION 95.8 % (94-98); ARTERIAL BLOOD PCO2 44.2 mmHg (35-45); ARTERIAL BLOOD PH 7.41 (7.35-7.45); ARTERIAL BLOOD PO2 78.9 mmHg (80-100); ARTERIAL BLOOD TOTAL CO2 28.9 mmol/L (23-27)
[2019-06-25 13:32] LABS: ARTERIAL BLOOD FIO2 21%
[2019-06-25] MEDS: ACETAMINOPHEN 325 MG TABLET PO SCH ×4 (13:45→23:20)
[2019-06-25] MEDS: OXCARBAZEPINE 150 MG TABLET PO SCH ×2 (13:47→17:08)
[2019-06-25] MEDS: TRIHEXYPHENIDYL HCL 5 MG TABLET PO SCH ×2 (13:49→21:05)
--- NOTE | 2019-06-25 15:59 | PDOC PROGRESS REPORT ---
Subjective Progress Note for:: 06/25/19 Subjective:: DENTON RAY is a 48 year old male with a past medical history of developmental delay, schizoaffective disorder, Parkinson's disorder, ROSCOE on CPAP, hypertension and hyperlipidemia who was brought in due to increasing lethargy. Work-up was remarkable for significant hypercapnia likely causing his lethargy. Patient was placed on BIPAP last night. his mentation did significantly improve. Upon encounter this morning, he is awake and coherent. He appears to be back to his baseline mentation. He reports that he has not been using his CPAP at night because he tends to forget it. He later said that his CPAP machine is broken. Patient wandered out of the hospital later this morning and was brought in back after being found by [employer]. Reason For Visit: ACUTE ENCEPHALOPATHY,PRE-SYNCOPE Physical Exam Vital Signs: Temp Pulse Resp BP Pulse Ox 98.0 F 99 18 170/90 H 100 06/25/19 08:00 06/25/19 08:00 06/25/19 08:00 06/25/19 08:00 06/25/19 08:00 Intake & Output 06/24/19 06/25/19 06/26/19 06:59 06:59 06:59 Intake Total 1762 Balance 1762 Weight 259 lb 0.69 oz General appearance: PRESENT: no acute distress, well-developed, well-nourished Head exam: PRESENT: atraumatic, normocephalic Eye exam: PRESENT: conjunctiva pink, EOMI, PERRLA. ABSENT: scleral icterus Ear exam: PRESENT: normal external ear exam Mouth exam: PRESENT: moist, tongue midline Neck exam: ABSENT: carotid bruit, JVD, lymphadenopathy, thyromegaly Respiratory exam: PRESENT: clear to auscultation thien. ABSENT: rales, rhonchi, wheezes Cardiovascular exam: PRESENT: RRR. ABSENT: diastolic murmur, rubs, systolic murmur Pulses: PRESENT: normal dorsalis pedis pul GI/Abdominal exam: PRESENT: normal bowel sounds, soft. ABSENT: distended, guarding, mass, organolmegaly, rebound, tenderness Rectal exam: PRESENT: deferred Extremities exam: PRESENT: full ROM. ABSENT: calf tenderness, clubbing, pedal edema Neurological exam: PRESENT: alert, awake, oriented to person, oriented to place, CN II-XII grossly intact. ABSENT: motor sensory deficit Results Laboratory Results: 06/24/19 10:25 06/24/19 10:25 06/24/19 06/24/19 06/25/19 10:25 13:42 13:04 Carbonic Acid 1.62 H 1.33 HCO3/H2CO3 Ratio 17:1 20:1 ABG pH 7.34 L 7.41 ABG pCO2 53.9 H 44.2 ABG pO2 73.4 L 78.9 L ABG HCO3 28.2 H 27.6 H ABG O2 Saturation 93.7 L 95.8 ABG Base Excess 1.2 2.5 FiO2 ROOM AIR 21% TSH 2.46 06/24/19 06/24/19 10:25 10:25 Creatine Kinase 114 CK-MB (CK-2) 3.37 Troponin I < 0.012 Impressions: Facial Bones CT 06/24/19 11:08 IMPRESSION: NO ACUTE FINDINGS. Head CT 06/24/19 11:08 IMPRESSION: NO ACUTE INTRACRANIAL FINDINGS. EVIDENCE OF ACUTE STROKE: NO. Cervical Spine CT 06/24/19 11:09 IMPRESSION: NO ACUTE FINDINGS. Assessment and Plan - Diagnosis (1) Acute encephalopathy Is this a current diagnosis for this admission?: Yes Plan: 06/24: Initial work-up has been unremarkable. UDS is negative. CT imaging has been unrevealing. BMP is also normal. Will check a TSH. Also order a VBG to assess for CO2 retention. Field Crop Grower says that patient has ROSCOE and he is compliant with his CPAP. She is unsure however how long the patient been on CPAP and if he had any recent titration study done. 06/25: Resolved. Blood gas showed acute on chronic respiratory acidosis. Likely from ROSCOE. Patient this morning says that he actually does not use his CPAP at night as he tends to forget it. He later said that his CPAP machine is broken. Will verify with ice guard skating rink if his CPAP is indeed working. We will try to get CPAP settings and see if we could do some changes with the settings. Otherwise he will likely need possible CPAP titration study. (2) ROSCOE (obstructive sleep apnea) Is this a current diagnosis for this admission?: Yes Plan: BiPAP at night or when asleep. (3) HTN (hypertension) Is this a current diagnosis for this admission?: Yes Plan: Home meds resumed. (4) Parkinsonism Is this a current diagnosis for this admission?: Yes Plan: Home meds resumed. (5) Schizoaffective disorder Qualifiers: Schizoaffective disorder type: unspecified Qualified Code(s): F25.9 - Schizoaffective disorder, unspecified Is this a current diagnosis for this admission?: Yes Plan: Home meds resumed. - Time Time Spent with patient: 25-34 minutes
[2019-06-25] MEDS ORDERED: (PENDING PHARMACY ID) (Quetiapine Fumarate [Seroquel] 600 MG) PO SCH (22:00)
[2019-06-25] MEDS ORDERED: DESMOPRESSIN ACETATE 0.4 MG PO SCH (22:00)
[2019-06-25] MEDS ORDERED: MAGNESIUM HYDROXIDE SUSP 30 ML UDCUP PO SCH (22:00)
[2019-06-25] MEDS ORDERED: DESMOPRESSIN ACETATE 0.1 MG TABLET PO SCH (22:00)
[2019-06-25] MEDS ORDERED: QUETIAPINE FUMARATE 100 MG TABLET PO SCH (22:00)
[2019-06-25] MEDS ORDERED: MAGNESIUM HYDROXIDE PO SCH (22:00)
[2019-06-26] MEDS: GUAIFENESIN/D-METHORPHAN (200-20 MG) SYRUP 10 ML PO SCH ×2 (06:10→08:08)
[2019-06-26] MEDS: ACETAMINOPHEN 325 MG TABLET PO SCH (07:38)
[2019-06-26] MEDS ORDERED: (PENDING PHARMACY ID) (Quetiapine Fumarate [Seroquel] 200 MG) PO SCH (08:00)
[2019-06-26] MEDS ORDERED: FUROSEMIDE 40 MG TABLET PO SCH (08:00)
[2019-06-26] MEDS ORDERED: QUETIAPINE FUMARATE 100 MG TABLET PO SCH (08:00)
[2019-06-26] MEDS ORDERED: MESALAMINE 1.2 GM PO SCH (08:00)
[2019-06-26] MEDS ORDERED: LISINOPRIL 10 MG TABLET PO SCH (08:00)
[2019-06-26] MEDS: OXCARBAZEPINE 150 MG TABLET PO SCH (10:34)
[2019-06-26] MEDS: TOPIRAMATE 100 MG TABLET PO SCH (10:34)
[2019-06-26] MEDS: TRIHEXYPHENIDYL HCL 5 MG TABLET PO SCH (10:36)
[2019-06-26 12:32] VITALS: BP 134/78
--- NOTE | 2019-06-26 18:20 | PDOC DISCHARGE SUMMARY ---
Impression - Admit/DC Date/PCP Admission Date/Primary Care Provider: 06/24/19 13:39 CORTNEY MEHTA MD Discharge Date: 06/26/19 - Discharge Diagnosis (1) Acute encephalopathy Is this a current diagnosis for this admission?: Yes (2) ROSCOE (obstructive sleep apnea) Is this a current diagnosis for this admission?: Yes (3) HTN (hypertension) Is this a current diagnosis for this admission?: Yes (4) Parkinsonism Is this a current diagnosis for this admission?: Yes (5) Schizoaffective disorder Is this a current diagnosis for this admission?: Yes - Additional Information Discharge Diet: As Tolerated Discharge Activity: Activity As Tolerated Referrals: HARRISON'Piyush,FELIX [Other] Home Medications: Acetaminophen [Tylenol 325 mg Tablet] 500 mg PO Q6H 06/24/19 Bismuth Subsalicylate [Maalox] 1 dose PO DAILYP PRN 06/24/19 Carbidopa/Levodopa/Entacapone [Carbidopa-Levodopa 75 mg-Enta] 1 each PO TID 06/24/19 Desmopressin Acetate 0.4 mg PO QHS 06/24/19 Diphenhydramine HCl [Banophen] 50 mg PO TID 06/24/19 Escitalopram Oxalate [Lexapro] 20 mg PO QAM 06/24/19 Furosemide [Lasix 40 mg Tablet] 40 mg PO QAM 06/24/19 Guaifenesin/D-Methorphan Hb [Robitussin Dm S-F Cough Syrup] 10 ml PO Q6H 06/24/19 Guanfacine HCl 1 mg PO TID 06/24/19 Lisinopril [Prinivil 10 mg Tablet] 10 mg PO QAM 06/24/19 Loperamide HCl [Anti-Diarrheal] 2 mg PO DAILYP PRN 06/24/19 Magnesium Hydroxide [Milk of Magnesia] 1 each PO QHS 06/24/19 Mesalamine [Lialda] 1.2 gm PO QAM 06/24/19 Oxcarbazepine [Trileptal] 600 mg PO BID 06/24/19 Quetiapine Fumarate [Seroquel] 200 mg PO QAM 06/24/19 Quetiapine Fumarate [Seroquel] 600 mg PO QHS 06/24/19 Topiramate [Topamax 100 mg Tablet] 100 mg PO BID 06/24/19 Trihexyphenidyl HCl [Artane 5 mg Tablet] 5 mg PO Q12 06/24/19 History of Present Illiness History of Present Illness: DENTON RAY is a 48 year old male with a past medical history of developmental delay, schizoaffective disorder, Parkinson's disorder, ROSCOE on CPAP, hypertension and hyperlipidemia who was brought in due to increasing lethargy. Patient lives in a residential facility and has a medical provider/padded products finisher. History is mostly obtained from patient's day padded products finisher. She says that he was at his baseline until yesterday when she has noticed that patient has been lethargic and has been significantly more worse Tom P. She says this is very unusual for him as he is usually very alert and communicative. She says that he was also more restless yesterday. She has noticed that he has been unsteady on his feet and has been "wobbly" since yesterday. She says that they were on their way to his PCP to have him evaluated today. However under way out, patient was noted to be very unsteady on his feet again and fell. She denies syncope, seizure-like activity, urinary or fecal incontinence. Upon encounter, patient is sleeping and snoring. He is arousable and is oriented to person and place. Patient's padded products finisher says that he is usually very awake and very talkative at this time of the day. She says that patient does not have family in [place]. Patient's surrogate medical decision maker her is his mother who is in [place]. She says the facility will contact his mother so she can give us her contact details. Hospital Course Hospital Course: DENTON RAY is a 48 year old male with a past medical history of developmental delay, schizoaffective disorder, Parkinson's disorder, ROSCOE on CPAP, hypertension and hyperlipidemia who was brought in due to increasing lethargy. Work-up was remarkable for significant hypercapnia likely causing his lethargy. ABG showed acute on chronic respiratory acidosis. Patient was placed on BIPAP. His mentation did significantly improve. His repeat ABG also showed resolution of hypercapnia with BiPAP therapy. Patient returned to his baseline mentation. Is able to ambulate the hallways on room air without any desaturation or acute issues nor any unsteady gait or balance problems. He reports that he has not been using his CPAP at night because he tends to forget it. He later said that his CPAP machine is broken. Facility personnel was recommended to ensure that patient is compliant with his CPAP at night. Also recommended close follow-up with PCP for referral for possible CPAP titration study if deemed warranted. Physical Exam Vital Signs: Temp Pulse Resp BP Pulse Ox 98.5 F 96 16 134/78 H 100 06/26/19 12:05 06/26/19 12:05 06/26/19 12:05 06/26/19 12:05 06/26/19 12:05 Intake & Output 06/25/19 06/26/19 06/27/19 06:59 06:59 06:59 Intake Total 1762 1240 596 Balance 1762 1240 596 Weight 259 lb 0.69 oz 259 lb 0.69 oz General appearance: PRESENT: no acute distress, well-developed, well-nourished Head exam: PRESENT: atraumatic, normocephalic Eye exam: PRESENT: conjunctiva pink, EOMI, PERRLA. ABSENT: scleral icterus Ear exam: PRESENT: normal external ear exam Mouth exam: PRESENT: moist, tongue midline Neck exam: ABSENT: carotid bruit, JVD, lymphadenopathy, thyromegaly Respiratory exam: PRESENT: clear to auscultation thien. ABSENT: rales, rhonchi, wheezes Cardiovascular exam: PRESENT: RRR. ABSENT: diastolic murmur, rubs, systolic murmur Pulses: PRESENT: normal dorsalis pedis pul GI/Abdominal exam: PRESENT: normal bowel sounds, soft. ABSENT: distended, guarding, mass, organolmegaly, rebound, tenderness Rectal exam: PRESENT: deferred Neurological exam: PRESENT: alert, awake, oriented to person, oriented to place, CN II-XII grossly intact. ABSENT: motor sensory deficit Results Laboratory Results: WBC 7.8 10^3/uL (4.0-10.5) 06/24/19 10:25 RBC 4.95 10^6/uL (4.35-5.55) 06/24/19 10:25 Hgb 15.1 g/dL (13.5-17.0) 06/24/19 10:25 Hct 44.5 % (37.9-51.0) 06/24/19 10:25 MCV 90 fl (80-97) 06/24/19 10:25 MCH 30.5 pg (27.0-33.4) 06/24/19 10:25 MCHC 33.9 g/dL (32.0-36.0) 06/24/19 10:25 RDW 13.5 % (11.5-14.0) 06/24/19 10:25 Plt Count 159 10^3/uL (150-450) 06/24/19 10:25 Lymph % (Auto) 22.9 % (13-45) 06/24/19 10:25 [place] % (Auto) 8.5 % (3-13) 06/24/19 10:25 Eos % (Auto) 3.4 % (0-6) 06/24/19 10:25 Baso % (Auto) 0.2 % (0-2) 06/24/19 10:25 Absolute Neuts (auto) 5.1 10^3/uL (1.7-8.2) 06/24/19 10:25 Absolute Lymphs (auto) 1.8 10^3/uL (0.5-4.7) 06/24/19 10:25 Absolute Monos (auto) 0.7 10^3/uL (0.1-1.4) 06/24/19 10:25 Absolute Eos (auto) 0.3 10^3/uL (0.0-0.6) 06/24/19 10:25 Absolute Basos (auto) 0.0 10^3/uL (0.0-0.2) 06/24/19 10:25 Seg Neutrophils % 65.0 % (42-78) 06/24/19 10:25 Carbonic Acid 1.33 mmol/L (1.05-1.35) 06/25/19 13:04 HCO3/H2CO3 Ratio 20:1 06/25/19 13:04 ABG pH 7.41 (7.35-7.45) 06/25/19 13:04 ABG pCO2 44.2 mmHg (35-45) 06/25/19 13:04 ABG pO2 78.9 mmHg (80-100) L 06/25/19 13:04 ABG HCO3 27.6 mmol/L (20-24) H 06/25/19 13:04 ABG Total CO2 28.9 mmol/L (23-27) H 06/25/19 13:04 ABG O2 Saturation 95.8 % (94-98) 06/25/19 13:04 ABG Base Excess 2.5 mmol/L 06/25/19 13:04 VBG pH 7.31 (7.30-7.42) 06/24/19 14:36 VBG pCO2 66.9 mmHg (35-63) H* 06/24/19 14:36 VBG HCO3 32.8 mmol/L (20-32) H 06/24/19 14:36 VBG Base Excess 4.1 mmol/L 06/24/19 14:36 FiO2 21% 06/25/19 13:04 Sodium 137.7 mmol/L (137-145) 06/24/19 10:25 Potassium 4.1 mmol/L (3.6-5.0) 06/24/19 10:25 Chloride 98 mmol/L (98-107) 06/24/19 10:25 Carbon Dioxide 30 mmol/L (22-30) 06/24/19 10:25 Anion Gap 10 (5-19) 06/24/19 10:25 BUN 12 mg/dL (7-20) 06/24/19 10:25 Creatinine 1.00 mg/dL (0.52-1.25) 06/24/19 10:25 Est GFR ( Amer) > 60 (>60) 06/24/19 10:25 Est GFR (MDRD) Non-Af > 60 (>60) 06/24/19 10:25 Glucose 110 mg/dL (75-110) 06/24/19 10:25 Calcium 9.9 mg/dL (8.4-10.2) 06/24/19 10:25 Total Bilirubin 0.3 mg/dL (0.2-1.3) 06/24/19 10:25 Direct Bilirubin 0.2 mg/dL (0.0-0.4) 06/24/19 10:25 Neonat Total Bilirubin Not Reportable 06/24/19 10:25 Neonat Direct Bilirubin Not Reportable 06/24/19 10:25 Neonat Indirect Bili Not Reportable 06/24/19 10:25 AST 22 U/L (17-59) 06/24/19 10:25 ALT 12 U/L (<50) 06/24/19 10:25 Alkaline Phosphatase 86 U/L (38-126) 06/24/19 10:25 Ammonia < 8.7 umol/L (9-33) L 06/24/19 12:57 Creatine Kinase 114 U/L (55-170) 06/24/19 10:25 CK-MB (CK-2) 3.37 ng/mL (<4.55) 06/24/19 10:25 Troponin I < 0.012 ng/mL 06/24/19 10:25 Total Protein 7.7 g/dL (6.3-8.2) 06/24/19 10:25 Albumin 4.6 g/dL (3.5-5.0) 06/24/19 10:25 TSH 2.46 uIU/mL (0.47-4.68) 06/24/19 10:25 Urine Color YELLOW 06/24/19 12:02 Urine Appearance CLEAR 06/24/19 12:02 Urine pH 6.0 (5.0-9.0) 06/24/19 12:02 Ur Specific Topping 1.009 06/24/19 12:02 Urine Protein NEGATIVE mg/dL (NEGATIVE) 06/24/19 12:02 Urine Glucose (UA) NEGATIVE mg/dL (NEGATIVE) 06/24/19 12:02 Urine Ketones NEGATIVE mg/dL (NEGATIVE) 06/24/19 12:02 Urine Blood NEGATIVE (NEGATIVE) 06/24/19 12:02 Urine Nitrite NEGATIVE (NEGATIVE) 06/24/19 12:02 Urine Nitrite (Reflex) NEGATIVE (NEGATIVE) 06/24/19 12:02 Urine Bilirubin NEGATIVE (NEGATIVE) 06/24/19 12:02 Urine Urobilinogen NEGATIVE mg/dL (<2.0) 06/24/19 12:02 Ur Leukocyte Esterase NEGATIVE (NEGATIVE) 06/24/19 12:02 Leukocyte Esterase Rfl NEGATIVE (NEGATIVE) 06/24/19 12:02 Urine WBC (Auto) 1 /HPF 06/24/19 12:02 U Hyaline Cast (Auto) 12 /LPF 06/24/19 12:02 Urine WBC (Reflex) 1 /HPF 06/24/19 12:02 Urine Mucus (Auto) RARE /LPF 06/24/19 12:02 Urine Ascorbic Acid NEGATIVE (NEGATIVE) 06/24/19 12:02 Urine Opiates Screen NEGATIVE 06/24/19 12:02 Urine Methadone Screen NEGATIVE 06/24/19 12:02 Ur Barbiturates Screen NEGATIVE 06/24/19 12:02 Ur Phencyclidine Scrn NEGATIVE 06/24/19 12:02 Ur Amphetamines Screen NEGATIVE 06/24/19 12:02 U Benzodiazepines Scrn NEGATIVE 06/24/19 12:02 Urine Cocaine Screen NEGATIVE 06/24/19 12:02 U Marijuana (THC) Screen NEGATIVE 06/24/19 12:02 Serum Alcohol < 10 mg/dL (NONE DETECTED) 06/24/19 10:25 06/24/19 10:25 CK-MB (CK-2) 3.37 Troponin I < 0.012 Impressions: Facial Bones CT 06/24/19 11:08 IMPRESSION: NO ACUTE FINDINGS. Head CT 06/24/19 11:08 IMPRESSION: NO ACUTE INTRACRANIAL FINDINGS. EVIDENCE OF ACUTE STROKE: NO. Cervical Spine CT 06/24/19 11:09 IMPRESSION: NO ACUTE FINDINGS. Stroke Is this a Stroke Patient?: No Acute Heart Failure - Is this a Heart Failure Patient?: No
== END 2019-06-26 12:42 | disposition short-term general hospital (02) ==
LOC: ER 09:40 → EH 13:39 → 5 17:44
PROVIDERS: ADMIT Internal Medicine; ATTEND Internal Medicine
DX: G93.40 Encephalopathy, unspecified (principal); G47.33 Obstructive sleep apnea (adult) (pediatric); I10 Essential (primary) hypertension; G20 Parkinson's disease; F25.9 Schizoaffective disorder, unspecified; R62.50 Unspecified lack of expected normal physiological development in childhood; E87.2 Acidosis; R06.89 Other abnormalities of breathing; I25.10 Atherosclerotic heart disease of native coronary artery without angina pectoris; R55 Syncope and collapse; E66.9 Obesity, unspecified; F03.91 Unspecified dementia, unspecified severity, with behavioral disturbance; Z91.83 Wandering in diseases classified elsewhere; Z79.899 Other long term (current) drug therapy
CPT/HCPCS: 93005; 99285; 36415; 82553; 80307 ×2; 82140; 82803 ×3; 82550; 84443; 85025; 80053; 81001; 84484; 70450; 70486; 72125; 93010; 36600; 94660 ×3; G0378 ×4; J3490 ×17

== ENCOUNTER 2019-08-01 08:11 | Emergency (ER) | payer MEDICAID ==
[2019-08-01 08:46] LABS: ABSOLUTE EOSINOPHILS # (AUTO) 0.5 10^3/uL (0.0-0.6); ABSOLUTE MONOCYTES (AUTO) 0.6 10^3/uL (0.1-1.4); ABSOLUTE NEUT (AUTO) 5.6 10^3/uL (1.7-8.2); BASOPHILS % (AUTO) 0.3 % (0-2); HEMATOCRIT 47.2 % (37.9-51.0); HEMOGLOBIN 16.2 g/dL (13.5-17.0); LYMPHOCYTES % (AUTO) 22.9 % (13-45); MEAN CORPUSCULAR HEMOGLOBIN 30.7 pg (27.0-33.4); MEAN CORPUSCULAR HGB CONC 34.2 g/dL (32.0-36.0); MEAN CORPUSCULAR VOLUME 90 fl (80-97); MONOCYTES % (AUTO) 6.9 % (3-13); PLATELET COUNT 166 10^3/uL (150-450); RED BLOOD COUNT 5.27 10^6/uL (4.35-5.55); RED CELL DISTRIBUTION WIDTH 13.2 % (11.5-14.0); SEGMENTED NEUTROPHILS % (AUTO) 63.9 % (42-78); TOTAL CELLS COUNTED % (AUTO) 100 %; WHITE BLOOD COUNT 8.7 10^3/uL (4.0-10.5)
[2019-08-01 09:15] LABS: ALBUMIN 4.6 g/dL (3.5-5.0); ALKALINE PHOSPHATASE 93 U/L (38-126); ANION GAP 12 (5-19); ASPARTATE AMINO TRANSFERASE 23 U/L (17-59); BILIRUBIN,DIRECT 0.2 mg/dL (0.0-0.4); BILIRUBIN,TOTAL 0.4 mg/dL (0.2-1.3); BLOOD UREA NITROGEN 16 mg/dL (7-20); CALCIUM 9.6 mg/dL (8.4-10.2); CARBON DIOXIDE 28 mmol/L (22-30); CHLORIDE 95 mmol/L (98-107); CREATINE KINASE 64 U/L (55-170); GLUCOSE 105 mg/dL (75-110); TOTAL PROTEIN 7.9 g/dL (6.3-8.2)
[2019-08-01 09:26] LABS: CREATINE KINASE MB 1.86 ng/mL (<4.55)
[2019-08-01 09:27] LABS: TROPONIN I < 0.012 ng/mL
[2019-08-01 09:35] LABS: APPEARANCE,URINE CLEAR; BILIRUBIN,URINE NEGATIVE (NEGATIVE); COLOR,URINE YELLOW; GLUCOSE, URINE NEGATIVE (NEGATIVE); KETONES,URINE NEGATIVE (NEGATIVE); LEUKOCYTE ESTERASE,URINE NEGATIVE (NEGATIVE); NITRITE,URINE NEGATIVE (NEGATIVE); PROTEIN,URINE NEGATIVE (NEGATIVE); URINE SPECIFIC GRAVITY 1.012; UROBILINOGEN,URINE NEGATIVE mg/dL (<2.0)
[2019-08-01] MEDS ORDERED: NORMAL SALINE 1000 ML 1,000 ML IV ONE (09:39)
--- NOTE | 2019-08-01 10:32 | ER Document Report ---
ED General - General Chief Complaint: Blood Pressure Problem Stated Complaint: FALL/DIZZINESS Time Seen by Provider: 08/01/19 09:30 Primary Care Provider: CORTNEY MEHTA MD [Primary Care Provider] - Follow up as needed TRAVEL OUTSIDE OF THE [place] IN LAST 30 DAYS: No - HPI Notes: Patient is a 48-year-old male who presents emergency department for evaluation of a syncopal episode. He was in the bathroom, having urinated, then had a syncopal episode. He denies hitting his head. He did think he passed out. He was easily arousable by staff, and brought to the ED for further evaluation. The patient right now denies any visual changes, no pain. He is eating and drinking normally. He did have his lisinopril this morning, his blood pressure was 120. - Related Data Allergies/Adverse Reactions: No Known Allergies Allergy (Verified 01/02/19 09:46) Past Medical History - General Information source: Patient, Outside Facility Records - Social History Smoking Status: Never Smoker Family History: Reviewed & Not Pertinent Patient has suicidal ideation: No Patient has homicidal ideation: No - Past Medical History Cardiac Medical History: Reports: Hx Coronary Artery Disease, Hx Hypercholesterolemia, Hx Hypertension Denies: Hx Heart Attack Pulmonary Medical History: Reports: Hx Sleep Apnea Denies: Hx Asthma, Hx Bronchitis, Hx COPD, Hx Pneumonia, Hx Tuberculosis Neurological Medical History: Denies: Hx Cerebrovascular Accident, Hx Seizures - PARKINSON'S Renal/ Medical History: Denies: Hx Peritoneal Dialysis GI Medical History: Denies: Hx Hepatitis, Hx Hiatal Hernia, Hx Ulcer - ULCERATIVE COLITIS Musculoskeletal Medical History: Denies Hx Arthritis Psychiatric Medical History: Reports: Hx Depression Infectious Medical History: Denies: Hx Hepatitis Past Surgical History: Denies: Hx Open Heart Surgery, Hx Pacemaker - Immunizations Hx Diphtheria, Pertussis, Tetanus Vaccination: Yes Review of Systems - Review of Systems Constitutional: No symptoms reported EENT: No symptoms reported Cardiovascular: See HPI Respiratory: No symptoms reported Gastrointestinal: No symptoms reported Genitourinary: No symptoms reported Musculoskeletal: No symptoms reported Skin: No symptoms reported Neurological/Psychological: No symptoms reported Physical Exam - Vital signs Vitals: Pulse BP 85 116/81 08/01/19 08:18 08/01/19 08:18 - Notes Notes: Vital signs reviewed, please refer to chart. Head is normocephalic, atraumatic. I cannot appreciate any sort of hematoma or tenderness. Pupils equal round, reactive to light. Neck is supple without meningismus. He has no cervical spine midline tenderness, no paraspinal musculature tenderness appreciated. Heart is regular rate and rhythm. Lungs are clear to auscultation bilaterally. Abdomen is soft, nontender, normoactive bowel sounds throughout. Extremities without cyanosis, clubbing. Posterior calves are nontender. Peripheral pulses are equal. Skin is warm and dry. Patient is awake, alert, oriented x3. Cranial nerves II - XII are grossly intact without focal neurological deficits. Strength is plus 5 out of 5 bilateral upper and lower extremities. Sensation is intact. Reflexes symmetrical. Intact [id number], rapid alternating movements, [id number]. Course - Re-evaluation Re-evalutation: 08/01/19 10:32 Patient presents to the emergency department for evaluation. He was placed on a order detailer. When EMS picked the patient up, they did orthostatics, which were found to be positive. He was given a liter of fluids here, he remained significantly orthostatic. A second liter is started. His laboratory investigations are largely unremarkable. He is on 40 mg of Lasix daily. I am currently evaluating his medical treatments and testing to evaluate why he is on this medication. I am concerned it is just simple dehydration which is making him near syncopal. This is been ongoing for about a month. Patient is curr ently stable, we will continue to monitor. 08/01/19 13:40 Patient was given a liter of IV fluids, remained symptomatic. He was given a second liter of fluids. His blood pressure dropped and he was entirely asymptomatic. At this point, the patient is feeling improved. He does not have any significant signs of renal failure. His blood pressures have been stable. The patient is on 40 mg of Lasix daily. He does not have any history of systolic heart failure. He does not have any significant edema. I am going to have this cut in half for the next week until he follows up with his primary c are provider. He is to get up slowly. The patient does have 24-hour care which will be able to minimize the risk of him getting up quickly and having another syncopal episode. Patient's caretakers are amenable to this plan. Otherwise, he is to follow-up with primary care this week, return to the ED with worsening or new concerning symptoms of any sort. - Vital Signs Vital signs: Temp Pulse Resp BP Pulse Ox 107 H 19 138/91 H 96 08/01/19 11:57 08/01/19 13:01 08/01/19 13:01 08/01/19 11:51 - Laboratory Result Diagrams: 08/01/19 07:57 08/01/19 07:57 Laboratory results interpreted by me: 08/01/19 07:57 Sodium 134.5 L Chloride 95 L - EKG Interpretation by Me Additional EKG results interpreted by me: 08/01/19 13:50 Sinus mechanism with a rate of 86 bpm. Normal axis and intervals, no acute ST changes concerning for ischemia or infarction. Discharge - Discharge Clinical Impression: Orthostatic hypotension, Syncope and collapse Condition: Stable Disposition: HOME, SELF-CARE Instructions: Orthostatic Hypotension ([facility]), Syncopal Episode ([facility]) Additional Instructions: Please get up slowly. Cut Lasix dose in half for the next week. Follow-up with his primary care provider this week. If he develops worsening or new concerning symptoms of any sort, please return immediately to the emergency department for evaluation. Referrals: CORTNEY MEHTA MD [Primary Care Provider] - Follow up as needed
[2019-08-01] MEDS ORDERED: NORMAL SALINE 1000 ML 500 ML IV ONE (11:59)
[2019-08-01 14:08] VITALS: BP 138/85
--- NOTE | 2019-08-01 17:14 | EKG REPORT ---
SEVERITY:- NORMAL ECG - SINUS RHYTHM : Confirmed by: Jodie Woodard MD 01-Aug-2019 17:14:03
== END 2019-08-01 14:26 | disposition home or self-care (01) ==
LOC: ER 08:11
DX: I95.1 Orthostatic hypotension (principal); W19.XXXA Unspecified fall, initial encounter; Z79.899 Other long term (current) drug therapy; I25.10 Atherosclerotic heart disease of native coronary artery without angina pectoris; I10 Essential (primary) hypertension
CPT/HCPCS: 93005; 99284; 96360; 96361; 36415; 82553; 82550; 85025; 80053; 81001; 84484; 93010; J7030

== ENCOUNTER 2019-08-17 08:39 | Emergency (ER) | payer MEDICAID ==
[2019-08-17] MEDS ORDERED: NORMAL SALINE 1000 ML 1,000 ML IV ONE ×2 (09:03)
[2019-08-17 09:06] LABS: ABSOLUTE EOSINOPHILS # (AUTO) 0.8 10^3/uL (0.0-0.6); ABSOLUTE LYMPHOCYTES (AUTO) 1.7 10^3/uL (0.5-4.7); ABSOLUTE MONOCYTES (AUTO) 0.4 10^3/uL (0.1-1.4); ABSOLUTE NEUT (AUTO) 4.1 10^3/uL (1.7-8.2); BASOPHILS % (AUTO) 0.6 % (0-2); EOSINOPHILS % (AUTO) 11.2 % (0-6); HEMATOCRIT 41.7 % (37.9-51.0); HEMOGLOBIN 14.2 g/dL (13.5-17.0); MEAN CORPUSCULAR HEMOGLOBIN 30.2 pg (27.0-33.4); MEAN CORPUSCULAR VOLUME 89 fl (80-97); MONOCYTES % (AUTO) 5.9 % (3-13); PLATELET COUNT 169 10^3/uL (150-450); RED CELL DISTRIBUTION WIDTH 13.3 % (11.5-14.0); SEGMENTED NEUTROPHILS % (AUTO) 58.3 % (42-78); TOTAL CELLS COUNTED % (AUTO) 100 %; WHITE BLOOD COUNT 7.1 10^3/uL (4.0-10.5)
[2019-08-17 09:29] LABS: ALBUMIN 4.1 g/dL (3.5-5.0); ALKALINE PHOSPHATASE 75 U/L (38-126); ANION GAP 9 (5-19); ASPARTATE AMINO TRANSFERASE 24 U/L (17-59); BILIRUBIN,TOTAL 0.4 mg/dL (0.2-1.3); BLOOD UREA NITROGEN 14 mg/dL (7-20); CALCIUM 9.5 mg/dL (8.4-10.2); CARBON DIOXIDE 26 mmol/L (22-30); CHLORIDE 100 mmol/L (98-107); CREATINE KINASE 84 U/L (55-170); GLUCOSE 96 mg/dL (75-110); POTASSIUM 4.4 mmol/L (3.6-5.0)
[2019-08-17 09:47] LABS: CREATINE KINASE MB 1.48 ng/mL (<4.55)
[2019-08-17 09:48] LABS: TROPONIN I < 0.012 ng/mL
--- NOTE | 2019-08-17 10:13 | RADIOLOGY REPORT (SQ) ---
EXAM DESCRIPTION: CTA CHEST COMPLETED DATE/TIME: 08/17/2019 9:55 am REASON FOR STUDY: hypoxic/hypotension/syncope COMPARISON: None. TECHNIQUE: CT scan of the chest performed using helical scanning technique with dynamic intravenous contrast injection. Images reviewed with lung, soft tissue and bone windows. Reconstructed coronal and sagittal MPR images reviewed. Additional 3 dimensional post-processing performed to develop Maximal Intensity Projection images (TX P). All images stored on PACS. All CT scanners at this facility use dose modulation, iterative reconstruction, and/or weight based d osing when appropriate to reduce radiation dose to as low as reasonably achievable (ALARA). [facility]: Dose Right [facility]: CareDose [facility]: Dose Right [facility]: Teradose 4D [facility]: Forensic Logic CONTRAST TYPE AND DOSE: contrast/concentration: Isovue 350.00 mg/ml; Total Contrast Delivered: 71.0 ml; Total Saline Delivered: 41.6 ml Contrast bolus adequate for pulmonary arteries and aorta. RENAL FUNCTION: None required. The patient is less than 50 years old. RADIATION DOSE: CT Rad equipment meets quality standard of care and radiation dose reduction techniq ues were employed. CTDIvol: 13.2 - 21.8 mGy. DLP: 782 mGy-cm. . LIMITATIONS: None. FINDINGS: LUNGS AND PLEURA: Mild mosaic attenuation and ground-glass opacities within the bilateral lower lobes. Minimal interlobular septal thickening at the lung bases. Scattered calcified granulom a. Subcentimeter nodules in the right middle lobe measuring 3 mm (series 4, image 53). No discrete pulmonary masses. No dense consolidation. No pneumothorax. AORTA AND GREAT VESSELS: No aneurysm. Contrast bolus not optimized for the aorta. HEART: No significant pericardial effusion. No significant coronary atherosclerosis. Heart is borde rline enlarged. PULMONARY ARTERIES: No emboli visualized in the main pulmonary arteries or the segmental branches. HILAR AND MEDIASTINAL STRUCTURES: No identified masses or abnormal nodes. HARDWARE: None in the chest. UPPER ABDOMEN: Prior cholecystectomy. No acute findings. THYROID AND OTHER SOFT TISSUES: No masses. No adenopathy. BONES: No acute or significant finding. 3D MIPS: Confirm above findings. OTHER: No other significant finding. IMPRESSION: 1. No evidence of pulmonary embolus. 2. Trace bilateral effusion, mild basilar ground-glass opacity and interlobular septal thickening, l ikely mild edema. Mild cardiomegaly. COMMENT: Quality ID # [id number]: Final reports with documentation of one or more dose reduction techniques (e.g., Automated exposure control, adjustment of the mA and/or kV according to patient size, use of iterative reconstruction technique) TECHNICAL DOCUMENTATION: JOB ID: [id number] 1983 [employer]- All Rights Reserved Reading location - IP/workstation name: [email or web address]
[2019-08-17 11:43] LABS: APPEARANCE,URINE CLEAR; BILIRUBIN,URINE NEGATIVE (NEGATIVE); COLOR,URINE YELLOW; GLUCOSE, URINE NEGATIVE (NEGATIVE); KETONES,URINE NEGATIVE (NEGATIVE); LEUKOCYTE ESTERASE,URINE NEGATIVE (NEGATIVE); NITRITE,URINE NEGATIVE (NEGATIVE); PROTEIN,URINE NEGATIVE (NEGATIVE); URINE SPECIFIC GRAVITY 1.034; UROBILINOGEN,URINE NEGATIVE mg/dL (<2.0)
--- NOTE | 2019-08-17 12:51 | ER Document Report ---
ED Dizziness/Weakness - General Chief Complaint: Near Syncope Stated Complaint: SYNCOPAL EPISODE Time Seen by Provider: 08/17/19 08:47 Primary Care Provider: CORTNEY MEHTA MD [Primary Care Provider] - Follow up as needed Mode of Arrival: Medic Information source: Patient TRAVEL OUTSIDE OF THE [place] IN LAST 30 DAYS: No - HPI Notes: Patient presents after syncopal episode. Patient is a resident of a long-term. Today at the long-term he took his daily medications and then got up and went to the restroom. Staff states that they heard a loud sound and found the patient on the floor. Patient apparently did lose consciousness for several seconds. Upon arrival here patient states that he feels back to normal. He denies any pain. No shortness of breath. No weakness or dizziness. He did have a similar episode approximately 2 weeks ago and was seen and treated here in the emergency department. At that time he was diagnosed with dehydration. He denies any recent headaches. No vomiting or diarrhea. Patient's syncope was brief. It was made worse by standing and better by lying down. The symptoms have been mild to moderate. There is no known radiation of the symptoms. - Related Data Allergies/Adverse Reactions: No Known Allergies Allergy (Verified 01/02/19 09:46) Home Medications: Lasix. Guanfacine. Lisinopril. Topiramate Past Medical History - General Information source: Patient - Social History Smoking Status: Never Smoker Frequency of alcohol use: None Drug Abuse: None Family History: Reviewed & Not Pertinent Patient has suicidal ideation: No Patient has homicidal ideation: No - Past Medical History Cardiac Medical History: Reports: Hx Coronary Artery Disease, Hx Hypercholesterolemia, Hx Hypertension Denies: Hx Heart Attack Pulmonary Medical History: Reports: Hx Sleep Apnea Denies: Hx Asthma, Hx Bronchitis, Hx COPD, Hx Pneumonia, Hx Tuberculosis Neurological Medical History: Denies: Hx Cerebrovascular Accident, Hx Seizures - PARKINSON'S Renal/ Medical History: Denies: Hx Peritoneal Dialysis GI Medical History: Denies: Hx Hepatitis, Hx Hiatal Hernia, Hx Ulcer - ULCERATIVE COLITIS Musculoskeletal Medical History: Denies Hx Arthritis Psychiatric Medical History: Reports: Hx Depression Infectious Medical History: Denies: Hx Hepatitis Past Surgical History: Denies: Hx Open Heart Surgery, Hx Pacemaker - Immunizations Hx Diphtheria, Pertussis, Tetanus Vaccination: Yes Review of Systems - Review of Systems Constitutional: Malaise, Weakness. denies: Chills, Fever Cardiovascular: denies: Chest pain, Palpitations Respiratory: denies: Cough, Short of breath -: Yes All other systems reviewed and negative Physical Exam - Vital signs Vitals: Temp Pulse Resp BP Pulse Ox 98.3 F 84 18 103/69 93 08/17/19 09:07 08/17/19 09:07 08/17/19 09:07 08/17/19 09:07 08/17/19 09:07 Interpretation: Normal - General General appearance: Appears well, Alert - HEENT Head: Normocephalic, Atraumatic Eyes: Normal Pupils: PERRL - Respiratory Respiratory status: No respiratory distress Chest status: Nontender Breath sounds: Normal Chest palpation: Normal - Cardiovascular Rhythm: Regular Heart sounds: Normal auscultation Murmur: No - Abdominal Inspection: Normal Distension: No distension Bowel sounds: Normal Tenderness: Nontender Organomegaly: No organomegaly - Back Back: Normal, Nontender - Extremities General upper extremity: Normal inspection, Nontender, Normal color, Normal ROM, Normal temperature General lower extremity: Normal inspection, Nontender, Normal color, Normal ROM, Normal temperature, Normal weight bearing. No: Rivas's sign - Neurological Neuro grossly intact: Yes Cognition: Normal Orientation: AAOx4 Brandi Coma Scale Eye Opening: Spontaneous Brandi Coma Scale Verbal: Oriented [place] Coma Scale Motor: Obeys Commands [place] Coma Scale Total: 15 Speech: Normal Motor strength normal: LUE, RUE, LLE, RLE Sensory: Normal - Psychological Associated symptoms: Normal affect, Normal mood - Skin Skin Temperature: Warm Skin Moisture: Dry Skin Color: Normal Course - Re-evaluation Re-evalutation: 08/17/19 12:48 Patient presents after syncopal episode. On arrival patient's oxygen saturation was slightly low between 90 and 93%. A CTA was done which was unremarkable. Patient did respond nicely to fluid bolus and has normal orthostatic vital signs now. I am going to recommend that the patient discontinue use of an antihypertensive medication as symptoms did seem to start soon after taking that this morning. I can find no other significant explanation for the syncope. There is no evidence of arrhythmia. There are no neurological changes. - Vital Signs Vital signs: Temp Pulse Resp BP Pulse Ox 98.3 F 79 23 H 141/90 H 99 08/17/19 09:07 08/17/19 12:06 08/17/19 12:04 08/17/19 12:06 08/17/19 12:02 - Laboratory Result Diagrams: 08/17/19 08:54 08/17/19 08:54 Laboratory results interpreted by me: 08/17/19 08/17/19 08:54 08:54 Eos % (Auto) 11.2 H Absolute Eos (auto) 0.8 H Sodium 134.6 L - Diagnostic Test Radiology reviewed: Image reviewed, Reports reviewed - EKG Interpretation by Me EKG shows normal: Sinus rhythm Rate: Normal - 86 Rhythm: NSR [place]/QRS: No: Right axis deviation, Left axis deviation Discharge - Discharge Clinical Impression: Syncope and collapse, Dehydration Condition: Stable Disposition: HOME, SELF-CARE Instructions: Syncopal Episode ([facility]), Dehydration ([facility]) Additional Instructions: Please do not take any more of your high blood pressure medication and to you see your family doctor. Referrals: CORTNEY MEHTA MD [Primary Care Provider] - Follow up tomorrow
[2019-08-17 13:02] VITALS: BP 140/99
--- NOTE | 2019-08-17 14:21 | EKG REPORT ---
SEVERITY:- NORMAL ECG - SINUS RHYTHM : Confirmed by: Dominick Casas 17-Aug-2019 14:20:05
== END 2019-08-17 13:01 | disposition home or self-care (01) ==
LOC: ER 08:39
DX: R55 Syncope and collapse (principal); E86.0 Dehydration; R53.81 Other malaise; R53.1 Weakness; I25.10 Atherosclerotic heart disease of native coronary artery without angina pectoris; I10 Essential (primary) hypertension; Z79.899 Other long term (current) drug therapy
CPT/HCPCS: 93005; 99284; 96360; 96361; 36415; 82553; 82550; 85025; 80053; 81001; 84484; 71275; 93010; J7030

== ENCOUNTER 2019-09-03 23:46 | Emergency (ER) | payer MEDICAID ==
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
[2019-09-04] MEDS ORDERED: NAPROXEN 250 MG TABLET PO ONE (03:22)
[2019-09-04 03:29] VITALS: BP 149/95
== END 2019-09-04 03:30 | disposition home or self-care (01) ==
LOC: ER 23:46
DX: S02.2XXA Fracture of nasal bones, initial encounter for closed fracture (principal); S00.12XA Contusion of left eyelid and periocular area, initial encounter; S00.11XA Contusion of right eyelid and periocular area, initial encounter; R51 Headache; W19.XXXA Unspecified fall, initial encounter; Y92.481 Parking lot as the place of occurrence of the external cause; I25.10 Atherosclerotic heart disease of native coronary artery without angina pectoris; I10 Essential (primary) hypertension
CPT/HCPCS: 73560; 70450; 70486; 72125; J3490; 99284

== ENCOUNTER 2019-09-15 06:06 | Emergency (ER) | payer MEDICAID | END 2019-09-15 08:31 | disposition left against medical advice (07) | LOC: ER 06:06 | DX: Z53.21 Procedure and treatment not carried out due to patient leaving prior to being seen by health care provider (principal) ==

== ENCOUNTER 2019-11-16 22:29 | Emergency (ER) | payer MEDICAID ==
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
[2019-11-17 00:59] VITALS: BP 123/82
== END 2019-11-17 01:10 | disposition home or self-care (01) ==
LOC: ER 22:29
DX: S02.2XXA Fracture of nasal bones, initial encounter for closed fracture (principal); R07.9 Chest pain, unspecified; M54.2 Cervicalgia; Y04.0XXA Assault by unarmed brawl or fight, initial encounter; Y92.199 Unspecified place in other specified residential institution as the place of occurrence of the external cause; Z87.891 Personal history of nicotine dependence; R09.81 Nasal congestion; I25.10 Atherosclerotic heart disease of native coronary artery without angina pectoris; I10 Essential (primary) hypertension
CPT/HCPCS: 70486; 71046; 72125; 99284

== ENCOUNTER 2019-11-18 10:20 | Inpatient (IN) | payer MEDICAID ==
[2019-11-18 10:42] LABS: ABSOLUTE EOSINOPHILS # (AUTO) 0.1 10^3/uL (0.0-0.6); ABSOLUTE LYMPHOCYTES (AUTO) 2.3 10^3/uL (0.5-4.7); ABSOLUTE MONOCYTES (AUTO) 1.1 10^3/uL (0.1-1.4); ABSOLUTE NEUT (AUTO) 8.8 10^3/uL (1.7-8.2); BASOPHILS % (AUTO) 0.2 % (0-2); EOSINOPHILS % (AUTO) 0.7 % (0-6); HEMATOCRIT 34.8 % (37.9-51.0); HEMOGLOBIN 11.7 g/dL (13.5-17.0); LYMPHOCYTES % (AUTO) 18.8 % (13-45); MEAN CORPUSCULAR HGB CONC 33.7 g/dL (32.0-36.0); MEAN CORPUSCULAR VOLUME 89 fl (80-97); MONOCYTES % (AUTO) 8.7 % (3-13); PLATELET COUNT 160 10^3/uL (150-450); RED BLOOD COUNT 3.91 10^6/uL (4.35-5.55); RED CELL DISTRIBUTION WIDTH 13.5 % (11.5-14.0); SEGMENTED NEUTROPHILS % (AUTO) 71.6 % (42-78); TOTAL CELLS COUNTED % (AUTO) 100 %; WHITE BLOOD COUNT 12.3 10^3/uL (4.0-10.5)
[2019-11-18] MEDS ORDERED: NORMAL SALINE 1000 ML 1,000 ML IV ONE ×2 (10:54→11:57)
--- NOTE | 2019-11-18 10:58 | ER Document Report ---
ED General - General Chief Complaint: Near Syncope Stated Complaint: BLOOD PRESSURE ISSUES/ NEAR SYNCOPE Time Seen by Provider: 11/18/19 10:32 Primary Care Provider: CORTNEY MEHTA MD [Primary Care Provider] - Follow up as needed TRAVEL OUTSIDE OF THE [place] IN LAST 30 DAYS: No - HPI Notes: Patient is a 49-year-old male who presents to the emergency department for evaluation after a near syncopal episode. The patient is a difficult historian. Evidently he had a near syncopal episode this morning. His blood pressure was found to be extremely low. The patient himself denies any pain at this time, beyond his nose, which he is aware is broken from an injury a few days ago. He states he not had any changes in his medications lately. He denies any difficulty seeing, speaking, swallowing. Per EMS, this is not a new problem for the patient. They have been called to his facility multiple times for near syncopal episodes. - Related Data Allergies/Adverse Reactions: No Known Allergies Allergy (Verified 01/02/19 09:46) Home Medications: List reviewed Past Medical History - General Information source: Patient - Social History Smoking Status: Never Smoker Family History: Reviewed & Not Pertinent Patient has homicidal ideation: No - Past Medical History Cardiac Medical History: Reports: Hx Coronary Artery Disease, Hx Hypercholesterolemia, Hx Hypertension Denies: Hx Heart Attack Pulmonary Medical History: Reports: Hx Sleep Apnea Denies: Hx Asthma, Hx Bronchitis, Hx COPD, Hx Pneumonia, Hx Tuberculosis Neurological Medical History: Reports: Hx Parkinson's Disease. Denies: Hx Cerebrovascular Accident, Hx Seizures - PARKINSON'S Renal/ Medical History: Denies: Hx Peritoneal Dialysis GI Medical History: Denies: Hx Hepatitis, Hx Hiatal Hernia, Hx Ulcer - ULCERATIVE COLITIS Musculoskeletal Medical History: Denies Hx Arthritis Psychiatric Medical History: Reports: Hx Depression Infectious Medical History: Denies: Hx Hepatitis Past Surgical History: Denies: Hx Open Heart Surgery, Hx Pacemaker - Immunizations Hx Diphtheria, Pertussis, Tetanus Vaccination: Yes Review of Systems - Review of Systems EENT: See HPI Cardiovascular: See HPI -: Yes All other systems reviewed and negative Physical Exam - Vital signs Vitals: Temp 97.8 F 11/18/19 10:27 - Notes Notes: This is a pleasant 49-year-old male who appears stated age in no acute distress. Head is normocephalic. He has a moderate amount of edema and deformity noted about the nose, with healing appearing ecchymosis in the periorbital regions around both eyes. He has dried blood in the nares. Pupils equal and round, reactive to light. Oral mucosa is moist. Heart regular rate and rhythm, lungs encrustation bilaterally. Abdomen soft, nontender, normoactive bowel sounds. Skin warm and dry. Peripheral pulses are equal. Patient is awake, alert, orie nted x3. Cranial nerves II - XII are grossly intact without focal neurological deficits. Strength is plus 5 out of 5 bilateral upper and lower extremities. Sensation is intact. Reflexes symmetrical. Intact [id number], rapid alternating movements, [id number]. Course - Re-evaluation Re-evalutation: 11/18/19 10:57 Patient presents emergency department for evaluation. His blood pressure is borderline at 99/40 at this time, his heart rate is mildly elevated. He has borderline low oxygenation, but he is laying flat, and he does have known sleep apnea. Will order a chest x-ray in addition to basic syncopal work-up. Given this blood pressure, will order blood cultures urinalysis as well. Patient is stable at this time. He is given IV fluids to help bolster his blood pressure. We will continue to monitor. 11/18/19 12:22 Patient's chest x-ray shows a multifocal bibasilar pneumonia. He has an elevated white count, elevated heart rate. He meets sepsis criteria. Lactic was added, serially ordered. His fluids totaled a 30 cc/kg bolus, with his first liter being administered prior to arrival. He was ordered Rocephin and Zithromax to cover for pneumonia. I spoke to his primary carpet binder at his long-term. He has not traveled out of the area. His only real transfer out of the long-term was in her car into a doctor's office. No PUIs at the facility. I spoke with Dr. Conway, then Dr. Arellano in regards to this patient. I do not have a high suspicion for COVID, but decision was made to proceed with rapid testing prior to disposition. Otherwise patient will be admitted to [facility] - Vital Signs Vital signs: Temp Pulse Resp BP Pulse Ox 97.8 F 108 H 16 99/52 L 93 11/18/19 10:32 11/18/19 10:32 11/18/19 12:04 11/18/19 12:04 11/18/19 12:04 - Laboratory Result Diagrams: 11/18/19 10:05 11/18/19 10:05 Laboratory results interpreted by me: 11/18/19 11/18/19 10:05 10:05 WBC 12.3 H RBC 3.91 L Hgb 11.7 L Hct 34.8 L Absolute Neuts (auto) 8.8 H Sodium 130.8 L Chloride 93 L BUN 28 H Creatinine 1.34 H Est GFR (MDRD) Non-Af 57 L Glucose 151 H - Diagnostic Test Radiology reviewed: Image reviewed, Reports reviewed Radiology results interpreted by me: 11/18/19 12:24 Chest X-Ray 11/18/19 10:59 IMPRESSION: Low lung volumes with new multifocal airspace disease greatest within the right middle and bilateral lower lobes suspicious for multifocal pneumonia. Finding reported to at Dr. Nielsen 1156 hours - EKG Interpretation by Me Additional EKG results interpreted by me: 11/18/19 12:24 Sinus tachycardia with a rate of 101 bpm. Normal axis, borderline prolonged QT interval. No acute ST changes concerning for ischemia or infarction. Discharge - Discharge Clinical Impression: OPAL (acute kidney injury), Hyponatremia Sepsis Qualifiers: Sepsis acute organ dysfunction status: with acute organ dysfunction Severe sepsis acute organ dysfunction type: unspecified Severe sepsis shock status: without septic shock Pneumonia Qualifiers: Laterality: bilateral Lung location: unspecified part of lung Condition: Stable Disposition: ADMITTED INPATIENT Admitting Provider: Adan (Hospitalist) Unit Admitted: IMCU Referrals: CORTNEY MEHTA MD [Primary Care Provider] - Follow up as needed
[2019-11-18 11:00] LABS: ALKALINE PHOSPHATASE 79 U/L (38-126); ANION GAP 12 (5-19); ASPARTATE AMINO TRANSFERASE 21 U/L (17-59); BILIRUBIN,DIRECT 0.1 mg/dL (0.0-0.4); BILIRUBIN,TOTAL 0.4 mg/dL (0.2-1.3); BLOOD UREA NITROGEN 28 mg/dL (7-20); CALCIUM 8.9 mg/dL (8.4-10.2); CARBON DIOXIDE 26 mmol/L (22-30); CHLORIDE 93 mmol/L (98-107); CREATINE KINASE 124 U/L (55-170); GLUCOSE 151 mg/dL (75-110); POTASSIUM 3.6 mmol/L (3.6-5.0); TOTAL PROTEIN 6.5 g/dL (6.3-8.2)
[2019-11-18 11:12] LABS: CREATINE KINASE MB 2.15 ng/mL (<4.55)
[2019-11-18 11:13] LABS: TROPONIN I < 0.012 ng/mL
[2019-11-18] MEDS ORDERED: CEFTRIAXONE 1 GM/D5W RTU 1 GM/50 ML RTUPB IV ONE (11:57)
[2019-11-18] MEDS ORDERED: NORMAL SALINE 500 ML IV ONE ×2 (11:57→15:56)
[2019-11-18] MEDS ORDERED: AZITHROMYCIN INJ 500 MG VIAL IV ONE (11:58)
--- NOTE | 2019-11-18 12:03 | RADIOLOGY REPORT (SQ) ---
EXAM DESCRIPTION: CHEST 2 VIEWS IMAGES COMPLETED DATE/TIME: 11/18/2019 11:45 am REASON FOR STUDY: mild hypoxia, hypotension COMPARISON: 11/16/2019 EXAM PARAMETERS: NUMBER OF VIEWS: two views TECHNIQUE: Digital Frontal and Lateral radiographic views of the chest acquired. RADIATION DOSE: NA LIMITATIONS: none FINDINGS: LUNGS AND PLEURA: Patchy bibasilar airspace disease with low lung volumes. Possible small effusions. No pneumothorax. MEDIASTINUM AND HILAR STRUCTURES: Partially obscured. No discrete masses. HEART AND VASCULAR STRUCTURES: Enlarged, stable. BONES: No acute findings. HARDWARE: None in the chest. OTHER: No other significant finding. IMPRESSION: Low lung volumes with new multifocal airspace disease greatest within the right middle a nd bilateral lower lobes suspicious for multifocal pneumonia. Finding reported to at Dr. Nielsen 1156 hours TECHNICAL DOCUMENTATION: JOB ID: [id number] 2010 [employer]- All Rights Reserved Reading location - IP/workstation name: [email or web address]
[2019-11-18 12:26] LABS: APPEARANCE,URINE SLIGHTLY-CLOUDY; BILIRUBIN,URINE NEGATIVE (NEGATIVE); CALCIUM OXALATE CRYSTALS,URINE RARE /HPF; COLOR,URINE YELLOW; GLUCOSE, URINE NEGATIVE (NEGATIVE); KETONES,URINE NEGATIVE (NEGATIVE); LEUKOCYTE ESTERASE,URINE NEGATIVE (NEGATIVE); NITRITE,URINE NEGATIVE (NEGATIVE); PROTEIN,URINE 30 mg/dL (NEGATIVE); URINE SPECIFIC GRAVITY 1.021
[2019-11-18] MEDS ORDERED: ALBUTEROL SULFATE 0.083% NEB 2.5 MG/3 ML AMPUL NEB PRN (13:36)
[2019-11-18] MEDS ORDERED: ONDANSETRON 4 MG TAB.RAPDIS PO PRN (13:36)
[2019-11-18] MEDS ORDERED: ONDANSETRON HCL INJ/PF 4 MG/2 ML SDV IV PRN (13:36)
[2019-11-18] MEDS ORDERED: ACETAMINOPHEN 325 MG TABLET PO PRN (13:36)
--- NOTE | 2019-11-18 14:26 | EKG REPORT ---
SEVERITY:- BORDERLINE ECG - SINUS TACHYCARDIA BORDERLINE PROLONGED QT INTERVAL : Confirmed by: Jodie Woodard MD 18-Nov-2019 14:26:02
[2019-11-18 15:09] LABS: ABSOLUTE BASOPHILS # (AUTO) 0.1 10^3/uL (0.0-0.2); ABSOLUTE EOSINOPHILS # (AUTO) 0.1 10^3/uL (0.0-0.6); ABSOLUTE LYMPHOCYTES (AUTO) 1.6 10^3/uL (0.5-4.7); ABSOLUTE MONOCYTES (AUTO) 0.7 10^3/uL (0.1-1.4); ABSOLUTE NEUT (AUTO) 8.9 10^3/uL (1.7-8.2); BASOPHILS % (AUTO) 0.5 % (0-2); HEMATOCRIT 34.2 % (37.9-51.0); HEMOGLOBIN 11.9 g/dL (13.5-17.0); LYMPHOCYTES % (AUTO) 13.9 % (13-45); MEAN CORPUSCULAR HEMOGLOBIN 30.5 pg (27.0-33.4); MEAN CORPUSCULAR HGB CONC 34.8 g/dL (32.0-36.0); MEAN CORPUSCULAR VOLUME 88 fl (80-97); MONOCYTES % (AUTO) 6.3 % (3-13); PLATELET COUNT 135 10^3/uL (150-450); RED BLOOD COUNT 3.91 10^6/uL (4.35-5.55); RED CELL DISTRIBUTION WIDTH 13.3 % (11.5-14.0); SEGMENTED NEUTROPHILS % (AUTO) 78.3 % (42-78); TOTAL CELLS COUNTED % (AUTO) 100 %; WHITE BLOOD COUNT 11.4 10^3/uL (4.0-10.5)
[2019-11-18] MEDS: ENOXAPARIN SODIUM INJ 40 MG/0.4 ML DISP.SYRIN SUBCUT SCH (15:17)
[2019-11-18] MEDS: RINGERS SOLUTION,LACTATED 1,000 ML IV PRN (17:44)
--- NOTE | 2019-11-18 18:59 | PDOC H&P ---
History of Present Illness Admission Date/PCP: 11/18/19 12:41 CORTNEY MEHTA MD History of Present Illness: DENTON ARY is a 49 year old male with past medical history significant for T2DM, HTN, HLD, schizoaffective disorder, mental retardation, parkinsonism, ROSCOE who presents with 3-day history of progressive shortness of breath without any cough or chest pain. He denies any fevers or malaise. He denies any high risk contacts for coronavirus. He does note having a nosebleed but states this resolved without intervention. His chest x-ray in ED showed multifocal pneumoni a and it was reported that he had a near syncopal episode at his senior care. He does also have mild acute kidney injury likely due to sepsis from pneumonia and prerenal. On admission he was tachycardic and hypotensive with systolics down to the 70s and 80s, this responded well to IV fluids. He was started on ceftriaxone and azithromycin and blood cultures were sent. He will need admission for treatment of pneumonia and sepsis. He states that he and his family have decided that he is full code. And he states his mother is his medical power of immigration attorney. Past Medical History Cardiac Medical History: Reports: Coronary Artery Disease, Hyperlipidema, Hypertension Denies: Myocardial Infarction Pulmonary Medical History: Reports: Sleep Apnea Denies: Asthma, Bronchitis, Chronic Obstructive Pulmonary Disease (COPD), Pneumonia, Tuberculosis Neurological Medical History: Denies: Seizures - PARKINSON'S Endocrine Medical History: Reports: Diabetes Mellitus Type 2 GI Medical History: Denies: Hepatitis, Hiatal Hernia Musculoskeltal Medical History: Denies: Arthritis Psychiatric Medical History: Reports: Depression Hematology: Denies: Anemia, Sickle Cell Disease Past Surgical History Past Surgical History: Denies: Pacemaker Social History Smoking Status: Never Smoker Frequency of Alcohol Use: None Hx Recreational Drug Use: No Drugs: None Hx Prescription Drug Abuse: No - Advance Directive Resuscitation Status: Full Code Surrogate healthcare decision maker:: Mother Family History Family History: Reviewed & Not Pertinent, CVA, Hypertension Parental Family History Reviewed: Yes Children Family History Reviewed: Yes Sibling(s) Family History Reviewed.: Yes Medication/Allergy Home Medications: Desmopressin Acetate 0.4 mg PO BID 06/24/19 Guanfacine HCl 1 mg PO TID 06/24/19 Lisinopril [Prinivil 10 mg Tablet] 10 mg PO QAM 06/24/19 Oxcarbazepine [Trileptal] 600 mg PO BID 06/24/19 Quetiapine Fumarate [Seroquel] 200 mg PO QAM 06/24/19 Quetiapine Fumarate [Seroquel] 600 mg PO QHS 06/24/19 Topiramate [Topamax 100 mg Tablet] 100 mg PO BID 06/24/19 Trihexyphenidyl HCl [Artane 5 mg Tablet] 5 mg PO Q12 06/24/19 Carbidopa/Levodopa [Carbidopa-Levo 25-100 mg Odt] 1 each PO BID 11/18/19 Chlorpromazine HCl [Thorazine 25 Mg Tablet] 25 mg PO BID 11/18/19 Fluticasone Propionate [Flonase Nasal Clayton 50 Mcg/Cl[place]ton 16 gm] 2 sprays NASL QAM 11/18/19 Furosemide [Lasix 20 mg Tablet] 20 mg PO QAM 11/18/19 Loratadine [Claritin] 10 mg PO DAILY 11/18/19 Losartan Potassium 100 mg PO DAILY 11/18/19 Mesalamine [Lialda] 2.4 gm PO QAM 11/18/19 Triamterene/Hydrochlorothiazid [Triamterene-Hctz 37.5-25 mg Cp] 1 each PO DAILY 11/18/19 Allergies/Adverse Reactions: No Known Allergies Allergy (Verified 01/02/19 09:46) Review of Systems All systems: reviewed and no additional remarkable complaints except as stated - Review of systems as per HPI otherwise negative Physical Exam Vital Signs: Temp Pulse Resp BP Pulse Ox 97.8 F 102 H 21 H 104/87 H 94 11/18/19 10:32 11/18/19 17:26 11/18/19 15:01 11/18/19 16:01 11/18/19 16:01 Intake & Output 11/17/19 11/18/19 11/19/19 06:59 06:59 06:59 Intake Total 3030 Balance 3030 Weight 108.862 kg General appearance: PRESENT: no acute distress, well-developed, well-nourished Head exam: PRESENT: atraumatic, normocephalic Eye exam: PRESENT: conjunctiva pink Mouth exam: PRESENT: moist Respiratory exam: PRESENT: crackles - Bilateral crackles noted. ABSENT: rales, rhonchi, wheezes Cardiovascular exam: PRESENT: RRR. ABSENT: diastolic murmur, rubs, systolic murmur GI/Abdominal exam: PRESENT: normal bowel sounds, soft. ABSENT: distended, guarding, mass, organolmegaly, rebound, tenderness Rectal exam: PRESENT: deferred Extremities exam: ABSENT: pedal edema Neurological exam: PRESENT: alert, awake, oriented to person, oriented to place, oriented to time, oriented to situation Psychiatric exam: PRESENT: appropriate affect, normal mood Skin exam: PRESENT: dry, intact, warm Results Laboratory Results: 11/18/19 14:57 11/18/19 10:05 11/18/19 11/18/19 11/18/19 10:05 10:05 11:45 WBC 12.3 H RBC 3.91 L Hgb 11.7 L Hct 34.8 L MCV 89 MCH 30.0 MCHC 33.7 RDW 13.5 Plt Count 160 Seg Neutrophils % 71.6 Sodium 130.8 L Potassium 3.6 Chloride 93 L Carbon Dioxide 26 Anion Gap 12 BUN 28 H Creatinine 1.34 H Est GFR ( Amer) > 60 Glucose 151 H Lactic Acid Calcium 8.9 Ferritin Total Bilirubin 0.4 AST 21 Alkaline Phosphatase 79 Total Protein 6.5 Albumin 4.0 Urine Color YELLOW Urine Appearance SLIGHTLY-CLOUDY Urine pH 5.0 Ur Specific Walton 1.021 Urine Protein 30 H Urine Glucose (UA) NEGATIVE Urine Ketones NEGATIVE Urine Blood NEGATIVE Urine Nitrite NEGATIVE Ur Leukocyte Esterase NEGATIVE Urine WBC (Auto) 3 Urine RBC (Auto) 7 11/18/19 11/18/19 11/18/19 12:00 12:01 14:57 WBC RBC Hgb Hct MCV MCH MCHC RDW Plt Count Seg Neutrophils % Sodium Potassium Chloride Carbon Dioxide Anion Gap BUN Creatinine Est GFR ( Amer) Glucose Lactic Acid 1.8 1.6 Calcium Ferritin 87.30 Total Bilirubin AST Alkaline Phosphatase Total Protein Albumin Urine Color Urine Appearance Urine pH Ur Specific Walton Urine Protein Urine Glucose (UA) Urine Ketones Urine Blood Urine Nitrite Ur Leukocyte Esterase Urine WBC (Auto) Urine RBC (Auto) 11/18/19 14:57 WBC 11.4 H RBC 3.91 L Hgb 11.9 L Hct 34.2 L MCV 88 MCH 30.5 MCHC 34.8 RDW 13.3 Plt Count 135 L Seg Neutrophils % 78.3 H Sodium Potassium Chloride Carbon Dioxide Anion Gap BUN Creatinine Est GFR ( Amer) Glucose Lactic Acid Calcium Ferritin Total Bilirubin AST Alkaline Phosphatase Total Protein Albumin Urine Color Urine Appearance Urine pH Ur Specific Walton Urine Protein Urine Glucose (UA) Urine Ketones Urine Blood Urine Nitrite Ur Leukocyte Esterase Urine WBC (Auto) Urine RBC (Auto) 11/18/19 11/18/19 10:05 10:05 Creatine Kinase 124 CK-MB (CK-2) 2.15 Troponin I < 0.012 Impressions: Chest X-Ray 11/18/19 10:59 IMPRESSION: Low lung volumes with new multifocal airspace disease greatest within the right middle and bilateral lower lobes suspicious for multifocal pneumonia. Finding reported to at Dr. Nielsen 1156 hours Assessment and Plan - Diagnosis (1) Sepsis Qualifiers: Sepsis type: sepsis due to unspecified organism Sepsis acute organ dysfunction status: with acute organ dysfunction Severe sepsis acute organ dysfunction type: unspecified Severe sepsis shock status: without septic shock Qualified Code(s): A41.9 - Sepsis, unspecified organism; R65.20 - Severe sepsis without septic shock Is this a current diagnosis for this admission?: Yes Plan: Source is pneumonia IV fluids IV antibiotics Blood cultures Respiratory culture (2) Pneumonia Qualifiers: Pneumonia type: due to unspecified organism Laterality: bilateral Lung location: unspecified part of lung Qualified Code(s): J18.9 - Pneumonia, unspecified organism Is this a current diagnosis for this admission?: Yes Plan: Seen on chest x-ray, multifocal pneumonia IV antibiotics Bronchial hygiene Respiratory culture, blood cultures (3) OPAL (acute kidney injury) Is this a current diagnosis for this admission?: Yes Plan: Due to prerenal etiology, hypotension, sepsis IV fluids Trend BMP (4) ROSCOE (obstructive sleep apnea) Is this a current diagnosis for this admission?: Yes Plan: Okay to use CPAP nightly, either the patient's or someone in hospital here (5) Pre-syncope Is this a current diagnosis for this admission?: Yes Plan: Likely due to hypotension and sepsis (6) HTN (hypertension) Is this a current diagnosis for this admission?: Yes Plan: Hold home BP meds (7) Mental retardation, idiopathic moderate Is this a current diagnosis for this admission?: Yes (8) Parkinsonism Is this a current diagnosis for this admission?: Yes Plan: Restart carbidopa/levodopa (9) Schizoaffective disorder Qualifiers: Schizoaffective disorder type: unspecified Qualified Code(s): F25.9 - Schizoaffective disorder, unspecified Is this a current diagnosis for this admission?: Yes Plan: Home meds - Time Time Spent with patient: 35 or more minutes Medications reviewed and adjusted accordingly: Yes - Inpatient Certification Based on my medical assessment, after consideration of the patient's comorbidities, presenting symptoms, or acuity I expect that the services needed warrant INPATIENT care.: Yes I certify that my determination is in accordance with my understanding of Medicare's requirements for reasonable and necessary INPATIENT services [42 CFR 412.3e].: Yes Medical Necessity: Significant Comorbidiites Make Outpatient Treatment Too Risky, Need Close Monitoring Due to Risk of Patient Decompensation, Need For IV Fluids, Need for IV Antibiotics, Risk of Complication if Not Cared For in Hospital, Risk of Diagnosis Which Will Require Inpatient Eval/Care/Monitoring
--- NOTE | 2019-11-18 19:00 | ADVANCED CARE ---
- Diagnosis (1) Sepsis Diagnosis Current: Yes (2) Pneumonia Diagnosis Current: Yes (3) OPAL (acute kidney injury) Diagnosis Current: Yes (4) ROSCOE (obstructive sleep apnea) Diagnosis Current: Yes (5) Pre-syncope Diagnosis Current: Yes (6) HTN (hypertension) Diagnosis Current: Yes (7) Mental retardation, idiopathic moderate Diagnosis Current: Yes (8) Parkinsonism Diagnosis Current: Yes (9) Schizoaffective disorder Diagnosis Current: Yes Attendance: Patient Resuscitation Status: Full Code Discussion: All aspects of CODE STATUS discussed including chest compressions/cardioversion/intubation and patient states that he and his family have decided he will be full code. He designates his mother Tom Manning as his medical power of state's attorney. Time Spent: 17 minutes
[2019-11-18] MEDS ORDERED: DESMOPRESSIN ACETATE 0.4 MG PO SCH (19:15)
[2019-11-18] MEDS: DESMOPRESSIN ACETATE 0.1 MG TABLET PO SCH (21:29)
[2019-11-18] MEDS: CARBIDOPA/LEVODOPA 25-100 MG TABLET PO SCH (21:29)
[2019-11-18] MEDS: TRIHEXYPHENIDYL HCL 5 MG TABLET PO SCH (21:31)
[2019-11-18] MEDS ORDERED: QUETIAPINE FUMARATE 100 MG TABLET PO SCH (22:00)
[2019-11-18] MEDS ORDERED: (PENDING PHARMACY ID) (Quetiapine Fumarate [Seroquel] 600 MG) PO SCH (22:00)
[2019-11-19] MEDS: RINGERS SOLUTION,LACTATED 1,000 ML IV PRN (05:40)
[2019-11-19] MEDS ORDERED: FLUTICASONE NASAL SPRAY 50 MCG/SPRY 120 SPRAY/16 GM NASL SCH (08:00)
[2019-11-19] MEDS ORDERED: QUETIAPINE FUMARATE 100 MG TABLET PO SCH (08:00)
[2019-11-19] MEDS ORDERED: (PENDING PHARMACY ID) (Quetiapine Fumarate [Seroquel] 200 MG) PO SCH (08:00)
[2019-11-19] MEDS ORDERED: SUCCINYLCHOLINE CHLORIDE INJ 200 MG/10 ML VIAL ONE (08:04)
[2019-11-19] MEDS: CARBIDOPA/LEVODOPA 25-100 MG TABLET PO SCH (09:48)
[2019-11-19] MEDS: ENOXAPARIN SODIUM INJ 40 MG/0.4 ML DISP.SYRIN SUBCUT SCH (09:49)
[2019-11-19] MEDS: DESMOPRESSIN ACETATE 0.1 MG TABLET PO SCH (09:49)
[2019-11-19] MEDS: TRIHEXYPHENIDYL HCL 5 MG TABLET PO SCH (09:49)
[2019-11-19] MEDS ORDERED: CHLORPROMAZINE HCL 25 MG TABLET PO SCH (10:00)
[2019-11-19] MEDS ORDERED: DOCUSATE SODIUM 100 MG CAPSULE PO SCH (10:00)
[2019-11-19] MEDS ORDERED: TOPIRAMATE 100 MG TABLET PO SCH (10:00)
[2019-11-19] MEDS ORDERED: (PENDING PHARMACY ID) (Carbidopa/Levodopa [Carbidopa-Levo 25-100 Mg Odt] 1 EACH) PO SCH (10:00)
[2019-11-19] MEDS ORDERED: AZITHROMYCIN INJ 500 MG VIAL IV SCH (10:00)
[2019-11-19] MEDS ORDERED: CEFTRIAXONE 2 GM/D5W RTU 2 GM/50 ML RTUPB IV SCH (10:00)
[2019-11-19] MEDS ORDERED: AZITHROMYCIN 500 MG in DEXTROSE 5%-WATER 250 ML IV SCH (12:00)
--- NOTE | 2019-11-19 12:57 | PDOC PROGRESS REPORT ---
Subjective Progress Note for:: 11/19/19 Subjective:: 11/19/2019 Patient seems to be doing quite well today overall, breathing better, no cough, no fever. He is at his baseline mentation. WBC is lower and his coronavirus test was negative. His d-dimer was slightly elevated but he is not hypoxic and has no shortness of breath today. Low likelihood he has DVT/PE, likely his d- dimer is elevated due to sepsis and pneumonia. He has no new complaints. Blood cultures are pending. Reason For Visit: MULTIFOCAL PNUEMONIA,SEPSIS,HYPOTENSION Physical Exam Vital Signs: Temp Pulse Resp BP Pulse Ox 97.7 F 112 H 18 153/66 H 92 11/19/19 11:26 11/19/19 11:26 11/19/19 11:26 11/19/19 11:26 11/19/19 11:26 Intake & Output 11/18/19 11/19/19 11/20/19 06:59 06:59 06:59 Intake Total 4719 888 Output Total 450 Balance 4269 888 Weight 109.8 kg General appearance: PRESENT: no acute distress, well-developed, well-nourished Head exam: PRESENT: atraumatic, normocephalic Eye exam: PRESENT: conjunctiva pink Mouth exam: PRESENT: moist Respiratory exam: PRESENT: crackles - Very faint minimal crackles bilaterally. ABSENT: rales, rhonchi, wheezes Cardiovascular exam: PRESENT: RRR. ABSENT: diastolic murmur, rubs, systolic murmur GI/Abdominal exam: PRESENT: normal bowel sounds, soft. ABSENT: distended, guarding, mass, organolmegaly, rebound, tenderness Extremities exam: ABSENT: pedal edema Neurological exam: PRESENT: alert, awake, oriented to person, oriented to place, oriented to time, oriented to situation Psychiatric exam: PRESENT: appropriate affect, normal mood Skin exam: PRESENT: dry, intact, warm Results Laboratory Results: 11/18/19 14:57 11/18/19 10:05 11/18/19 11/18/19 11/18/19 12:00 12:01 14:57 WBC RBC Hgb Hct MCV MCH MCHC RDW Plt Count Seg Neutrophils % Lactic Acid 1.8 1.6 Phosphorus Magnesium Ferritin 87.30 11/18/19 11/18/19 11/19/19 14:57 19:36 05:33 WBC 11.4 H RBC 3.91 L Hgb 11.9 L Hct 34.2 L MCV 88 MCH 30.5 MCHC 34.8 RDW 13.3 Plt Count 135 L Seg Neutrophils % 78.3 H Lactic Acid 1.8 Phosphorus 3.0 Magnesium 1.6 Ferritin 11/18/19 11/18/19 10:05 10:05 Creatine Kinase 124 CK-MB (CK-2) 2.15 Troponin I < 0.012 Impressions: Chest X-Ray 11/18/19 10:59 IMPRESSION: Low lung volumes with new multifocal airspace disease greatest within the right middle and bilateral lower lobes suspicious for multifocal pneumonia. Finding reported to at Dr. Nielsen 1156 hours Assessment and Plan - Diagnosis (1) Sepsis Qualifiers: Sepsis type: sepsis due to unspecified organism Sepsis acute organ dysfunction status: with acute organ dysfunction Severe sepsis acute organ dysfunction type: unspecified Severe sepsis shock status: without septic shock Qualified Code(s): A41.9 - Sepsis, unspecified organism; R65.20 - Severe sepsis without septic shock Is this a current diagnosis for this admission?: Yes Plan: Source is pneumonia IV fluids IV antibiotics Blood cultures Respiratory culture 11/19/2019 Sepsis is resolved/resolving Continue antibiotics and follow-up blood cultures (2) Pneumonia Qualifiers: Pneumonia type: due to unspecified organism Laterality: bilateral Lung location: unspecified part of lung Qualified Code(s): J18.9 - Pneumonia, un specified organism Is this a current diagnosis for this admission?: Yes Plan: Seen on chest x-ray, multifocal pneumonia IV antibiotics Bronchial hygiene Respiratory culture, blood cultures 11/19/2019 Antibiotics continue Bronchial hygiene continues, incentive spirometer (3) OPAL (acute kidney injury) Is this a current diagnosis for this admission?: Yes Plan: Due to prerenal etiology, hypotension, sepsis IV fluids Trend BMP 11/19/2019 Continue IV fluids Recheck BMP today (4) ROSCOE (obstructive sleep apnea) Is this a current diagnosis for this admission?: Yes (5) Pre-syncope Is this a current diagnosis for this admission?: Yes (6) HTN (hypertension) Is this a current diagnosis for this admission?: Yes (7) Mental retardation, idiopathic moderate Is this a current diagnosis for this admission?: Yes (8) Parkinsonism Is this a current diagnosis for this admission?: Yes (9) Schizoaffective disorder Qualifiers: Schizoaffective disorder type: unspecified Qualified Code(s): F25.9 - Schizoaffective disorder, unspecified Is this a current diagnosis for this admission?: Yes - Time Time Spent with patient: 15-24 minutes Medications reviewed and adjusted accordingly: Yes - Inpatient Certification Based on my medical assessment, after consideration of the patient's comorbidities, presenting symptoms, or acuity I expect that the services needed warrant INPATIENT care.: Yes I certify that my determination is in accordance with my understanding of Medicare's requirements for reasonable and necessary INPATIENT services [42 CFR 412.3e].: Yes Medical Necessity: Significant Comorbidiites Make Outpatient Treatment Too Risky, Need Close Monitoring Due to Risk of Patient Decompensation, Need For IV Fluids, Need for IV Antibiotics, Risk of Complication if Not Cared For in Hospital, Risk of Diagnosis Which Will Require Inpatient Eval/Care/Monitoring
--- NOTE | 2019-11-19 15:49 | RADIOLOGY REPORT (SQ) ---
EXAM DESCRIPTION: CHEST SINGLE VIEW IMAGES COMPLETED DATE/TIME: 11/19/2019 3:28 pm REASON FOR STUDY: Flank/Chest pain COMPARISON: 11/18/2019 FINDINGS: One-view chest AP portable upright. Limited by portable technique. Worsening right pleural effusion over the past day, now large. Even allowing for slight rotation, me diastinal structures may be shifted to the left. TECHNICAL DOCUMENTATION: JOB ID: [id number] Reading location - IP/workstation name: [email or web address]
[2019-11-19 15:54] LABS: ABSOLUTE BASOPHILS # (AUTO) 0.1 10^3/uL (0.0-0.2); ABSOLUTE EOSINOPHILS # (AUTO) 0.4 10^3/uL (0.0-0.6); ABSOLUTE LYMPHOCYTES (AUTO) 1.5 10^3/uL (0.5-4.7); ABSOLUTE MONOCYTES (AUTO) 0.6 10^3/uL (0.1-1.4); ABSOLUTE NEUT (AUTO) 4.4 10^3/uL (1.7-8.2); EOSINOPHILS % (AUTO) 6.3 % (0-6); HEMATOCRIT 27.2 % (37.9-51.0); LYMPHOCYTES % (AUTO) 21.4 % (13-45); MEAN CORPUSCULAR HGB CONC 35.5 g/dL (32.0-36.0); MEAN CORPUSCULAR VOLUME 87 fl (80-97); MONOCYTES % (AUTO) 8.1 % (3-13); PLATELET COUNT 110 10^3/uL (150-450); RED BLOOD COUNT 3.11 10^6/uL (4.35-5.55); RED CELL DISTRIBUTION WIDTH 13.4 % (11.5-14.0); SEGMENTED NEUTROPHILS % (AUTO) 63.2 % (42-78); TOTAL CELLS COUNTED % (AUTO) 100 %; WHITE BLOOD COUNT 6.9 10^3/uL (4.0-10.5)
[2019-11-19 15:55] LABS: HEMOGLOBIN 9.6 g/dL (13.5-17.0)
[2019-11-19] MEDS ORDERED: LIDOCAINE 2% INJ-PF (100 MG/5 ML) SYRINGE ONE (16:17)
[2019-11-19] MEDS ORDERED: LIDOCAINE 1% INJ-PF (10 MG/ML) 30 ML SDV ONE (16:17)
--- NOTE | 2019-11-19 16:22 | RADIOLOGY REPORT (SQ) ---
EXAM DESCRIPTION: CT CHEST WITH IMAGES COMPLETED DATE/TIME: 11/19/2019 4:02 pm REASON FOR STUDY: pneumothorax vs empyema COMPARISON: Recent radiographs. TECHNIQUE: CT scan of the chest performed using helical scanning technique with dynamic intravenous contrast injection. Images reviewed with lung, soft tissue and bone windows. Reconstructed coronal and sagittal MPR and MIP images reviewed. All images stored on PACS. All CT scanners at this facility use dose modulation, iterative reconstruction, and/or weight based d osing when appropriate to reduce radiation dose to as low as reasonably achievable (ALARA). [facility]: Dose Right [facility]: CareDose [facility]: Dose Right [facility]: Teradose 4D [facility]: [employer] CONTRAST TYPE AND DOSE: contrast/concentration: Isovue 350.00 mg/ml; Total Contrast Delivered: 80.0 ml; Total Saline Delivered: 55.0 ml RENAL FUNCTION: GFR > 60. RADIATION DOSE: CT Rad equipment meets quality standard of care and radiation dose reduction techniq ues were employed. CTDIvol: 19.4 mGy. DLP: 731 mGy-cm. . LIMITATIONS: None. FINDINGS: LUNGS AND PLEURA: Extremely large right pleural effusion. This may be exudative given inc reased Hounsfield units throughout. There is also heterogeneous enhancement or debris dependently in feriorly. Associated collapse and consolidation in the right lower lobe with mild volume loss in the right middle lobe and right upper lobe. Left lung looks relatively clear. HILAR AND MEDIASTINAL STRUCTURES: Shift of mediastinal structures to the left. No mass or adenopathy detected. HEART AND VASCULAR STRUCTURES: No large pericardial effusion, aortic aneurysm or dissection or pulmon silvano embolus. HARDWARE: None in the chest. UPPER ABDOMEN: No significant findings. Limited exam. THYROID AND OTHER SOFT TISSUES: No masses. No adenopathy. BONES: No significant finding. OTHER: No other significant finding. IMPRESSION: 1. Very large complicated appearing right pleural effusion. There is associated consolidation and vo lume loss in the right lung. Considerable shift of mediastinal structures to the left. Call report tasked the [facility] CORE team at the time of interpretation. TECHNICAL DOCUMENTATION: JOB ID: [id number] Quality ID # [id number]: Final reports with documentation of one or more dose reduction techniques (e.g., Au tomated exposure control, adjustment of the mA and/or kV according to patient size, use of iterative reconstruction technique) 2010 [employer]- All Rights Reserved Reading location - IP/workstation name: [email or web address]
[2019-11-19 16:25] VITALS: BP 132/75
[2019-11-19 16:44] LABS: PROTHROMBIN TIME 13.2 SEC (11.4-15.4)
[2019-11-19 16:45] LABS: FIBRINOGEN 390 mg/dL (209-497)
[2019-11-19] MEDS ORDERED: MIDAZOLAM 2 MG/2 ML INJ ONE (16:46)
[2019-11-19] MEDS ORDERED: PROPOFOL 1,000 MG/100 ML INFUS..BTL IV ONE (17:01)
[2019-11-19 17:03] LABS: ABSOLUTE EOSINOPHILS # (AUTO) 0.6 10^3/uL (0.0-0.6); ABSOLUTE LYMPHOCYTES (AUTO) 2.2 10^3/uL (0.5-4.7); ABSOLUTE MONOCYTES (AUTO) 0.9 10^3/uL (0.1-1.4); ABSOLUTE NEUT (AUTO) 6.7 10^3/uL (1.7-8.2); BASOPHILS % (AUTO) 0.4 % (0-2); HEMATOCRIT 25.8 % (37.9-51.0); HEMOGLOBIN 9.1 g/dL (13.5-17.0); LYMPHOCYTES % (AUTO) 21.3 % (13-45); MEAN CORPUSCULAR HEMOGLOBIN 30.5 pg (27.0-33.4); MEAN CORPUSCULAR HGB CONC 35.2 g/dL (32.0-36.0); MEAN CORPUSCULAR VOLUME 87 fl (80-97); MONOCYTES % (AUTO) 8.2 % (3-13); PLATELET COUNT 135 10^3/uL (150-450); RED BLOOD COUNT 2.98 10^6/uL (4.35-5.55); RED CELL DISTRIBUTION WIDTH 13.5 % (11.5-14.0); SEGMENTED NEUTROPHILS % (AUTO) 64.1 % (42-78); TOTAL CELLS COUNTED % (AUTO) 100 %; WHITE BLOOD COUNT 10.5 10^3/uL (4.0-10.5)
[2019-11-19] MEDS ORDERED: NORMAL SALINE 250 ML IV PRN (17:29)
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
[2019-11-19] MEDS ORDERED: NOREPINEPHRINE BITARTRATE INJ/PF 4 MG/4 ML SDV IV ONE (17:42)
--- NOTE | 2019-11-19 17:50 | Operative Report ---
Nonrecallable Operative Report DATE OF SURGERY: 11/19/19 PREOPERATIVE DIAGNOSIS: Massive hemothorax POSTOPERATIVE DIAGNOSIS: Massive hemothorax, >2.5 liters OPERATION: Right tube thoracostomy SURGEON: MICHAEL SILVERIO ANESTHESIA: Local - 20cc 1% lidocaine COMPLICATIONS: respiratory arrest immediately after insertion of the chest tube. The patient regained consciousness, shortly after CPR was initiated. ESTIMATED BLOOD LOSS: 2.5 liters of hemothorax PROCEDURE: Drain/implants: 36 [place] right tube thoracostomy. Procedure in detail: After informed consent was obtained from the patient and his mother, the patient was laid in the semi-upright position in the hospital room. The area of the right chest was prepped and draped in a normal sterile fashion. 1% lidocaine was infiltrated into the skin of the right lateral chest. An incision was created with a 15 blade scalpel at the level of the nipple in the mid axillary line. Dissection was carried through the subcutaneous tissues, to the chest wall using blunt means. The chest was entered using a blunt Qian clamp, over top of the rib. A large umana of blood was noted. A finger sweep was performed. 36 [place] chest tube was inserted into the chest cavity, and directed posteriorly. The chest tube was then sutured into place using 0 silk suture x2. The chest tube was unclamped, and approximately 2 L of blood was immediately returned to the chest tube. The chest tube was then immediately clamped, for fear of continued exsanguinating hemorrhage. At this time it was noted that the patient's respirations had become shallow, and the patient lost consciousness. A code was started at this time. The patient received epinephrine, chest compressions, and bag mask ventilation. The patient regained consciousness. It was felt for his safety that intubation would be required. The project control officer was consulted for intubation. Transfer was arranged for emergent thoracotomy at [facility]. Patient was then transferred to the ICU. Condition: Critical.
[2019-11-19] MEDS ORDERED: DEXTROSE 5%-WATER 250 ML with NOREPINEPHRINE BITARTRATE 4 MG IV PRN ×2 (18:14)
[2019-11-19] MEDS ORDERED: DEXMEDETOMIDINE IN NS 400 MCG/100 ML RTUPB IV PRN (18:14)
[2019-11-19] MEDS ORDERED: PROPOFOL 1,000 MG/100 ML INFUS..BTL IV PRN (18:15)
--- NOTE | 2019-11-19 18:28 | RADIOLOGY REPORT (SQ) ---
EXAM DESCRIPTION: CHEST SINGLE VIEW IMAGES COMPLETED DATE/TIME: 11/19/2019 4:55 pm REASON FOR STUDY: CHEST TUBE COMPARISON: Chest radiograph, 11/19/2019. CT chest, 11/19/2019. EXAM PARAMETERS: NUMBER OF VIEWS: One view TECHNIQUE: Single frontal radiographic view of the chest acquired. RADIATION DOSE: NA LIMITATIONS: None. FINDINGS: LUNGS AND PLEURA: Interval decrease in size of the right pleural effusion, probably with r esidual basilar component. No pneumothorax. Patchy bibasilar atelectasis. MEDIASTINUM AND HILAR STRUCTURES: No masses. Contour normal. HEART AND VASCULAR STRUCTURES: Moderate cardiomegaly. BONES: No acute findings. HARDWARE: Endotracheal tube with tip 3.8 cm above the alicia. OTHER: No other significant finding. IMPRESSION: Endotracheal tube with tip in good position in the midthoracic trachea. Decreased right pleural effusion. TECHNICAL DOCUMENTATION: JOB ID: [id number] 2010 [employer]- All Rights Reserved Reading location - IP/workstation name: [email or web address]
[2019-11-19] MEDS ORDERED: MIDAZOLAM HCL INJ 5 MG/1 ML VIAL IV ONE (18:30)
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
--- NOTE | 2019-11-19 19:21 | Operative Report ---
Bedside Procedure - History of Present Illness History of Present Illness: Indication: Respiratory Failure Procedure tension machine operator: SUSHMA Arguello Attending physician: Aparna Consent: The procedure was performed emergently and the permission was implied because of the emergent nature. Procedure summary: A timeout was performed. My hands were washed immediately prior to the procedure. I were surgical cap, mask with protective eyewear, gown and gloves throughout the procedure. The patient was placed on a director of intercollegiate athletics including continuous pulse oximetry. Rapid sequence intubation was conducted. The patient received 4 mg of Versed for induction and 100 mg of succinylcholine for adequate muscle relaxation. Cricoid pressure was maintained from time induction agent was given the time of cuff balloon inflation. Using a 3.5 laryngoscope and a size 7.5 endotracheal tube with stylette, the patient was intubated on the first attempt. The stylette was removed and the cuff balloon was inflated. Appropriate endotracheal tube position was confirmed by direct visualization of vocal cord passage, CO2 colorimetric indicator and symmetric breath sounds. The tube was secured at 24 centimeters at the lips. Post intubation chest x-ray confirms ET tube at 3 centimeters above the alicia. Indication for Procedure: Respiratory failure Provider: JERILYN WILLIAMSON
--- NOTE | 2019-11-19 19:24 | Operative Report ---
Bedside Procedure - History of Present Illness History of Present Illness: Procedure: Central line placement Indication: Vasoactive medications, IV fluids, blood draws. Procedure shrink pit operator: SUSHMA Arguello Attending physician: Dr. Braun Consent: The procedure was performed emergently and the permission was implied because of the emergent nature. Procedure summary: The [facility] central line insertion practice form was completed by RN. A timeout was performed. My hands were washed immediately prior to the procedur e. I wore surgical cap, mask with protective eyewear, full gown and sterile gloves throughout the procedure. The patient was placed in Trendelenburg position. Right chest region was prepped using chlorhexidine scrub and draped in sterile fashion using a full drape. Sterile probe cover was placed on ultrasound probe. The medial and lateral heads of the sternocleidomastoid muscle were identified as was the carotid pulse. The internal jugular vein was identified using ultrasound. Anesthesia was achieved over the vein using 4 cc of 1% lidocaine. Using real-time out of plane guidance, the introducer needle was inserted into the internal jugular vein under direct ultrasound visualization. Venous blood was withdrawn. The syringe was removed and a guidewire was advanced into the introducer needle. The guidewire was visualized in the internal jugular vein by ultrasound. A small incision was made at the skin surface with a scalpel and the introducer needle was exchanged for a dilator over the guidewire. After appropriate dilation was obtained, the dilator was exchanged over a wire for a 7 Pashto, 20 cm central venous catheter. The wire was removed and the catheter was sutured in place at 15 cm. A IO patch was placed and a sterile Sorbaview shield was placed over the catheter at the insertion site. The patient tolerated the procedure well without any hemodynamic compromise. At time of procedure completion, all ports aspirated and flushed properly. Postprocedure x-ray shows central line in proper place. Estimated blood loss is approximately 10 cc. Indication for Procedure: Vasoactive medications Provider: JERILYN WILLIAMSON - Central Line Right Internal jugular Time completed: 06:00 Consent obtained: No - The procedure was performed emergently and the permission was implied becau Central line pre-insertion: Sterile PPE donned, Chloraprep applied, Sterile drapes applied Central line lumen type: Triple Ultrasound guided: Yes Line secured with sutures: Yes Central line post-insertion: Blood return from lumens, Biopatch applied, Sutured, Sterile dressing applied, Position confirmed w/ CXR Number of attempts: 1 Complications: No
--- NOTE | 2019-11-19 20:39 | EKG REPORT ---
SEVERITY:- ABNORMAL ECG - ATRIAL FIBRILLATION, V-RATE [id number] RIGHT AXIS DEVIATION REPOLARIZATION ABNORMALITY, PROB RATE RELATED BORDERLINE PROLONGED QT INTERVAL : Confirmed by: Jodie Woodard MD 19-Nov-2019 20:38:34
[2019-11-20] MEDS ORDERED: EPINEPHRINE INJ 1 MG/10 ML DISP.SYRIN ONE (07:58)
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
== END 2019-11-19 18:00 | disposition short-term general hospital (02) | DRG 208 ==
LOC: ER 10:20 → EH 12:41 → 3W 17:08 → ICU 11-19 17:00
PROVIDERS: ADMIT Internal Medicine; ATTEND Internal Medicine
PROC: 5A1935Z Respiratory Ventilation, Less than 24 Consecutive Hours (ICD-10-PCS; principal; 2019-11-19)
PROC: 0BH17EZ Insertion of Endotracheal Airway into Trachea, Via Natural or Artificial Opening (ICD-10-PCS; 2019-11-19)
PROC: 30243N1 Transfusion of Nonautologous Red Blood Cells into Central Vein, Percutaneous Approach (ICD-10-PCS; 2019-11-19)
PROC: 0W9B00Z Drainage of Left Pleural Cavity with Drainage Device, Open Approach (ICD-10-PCS; 2019-11-19)
PROC: 05HM33Z Insertion of Infusion Device into Right Internal Jugular Vein, Percutaneous Approach (ICD-10-PCS; 2019-11-19)
DX: S27.1XXA Traumatic hemothorax, initial encounter (principal); I46.8 Cardiac arrest due to other underlying condition; N17.9 Acute kidney failure, unspecified; E87.1 Hypo-osmolality and hyponatremia; I25.10 Atherosclerotic heart disease of native coronary artery without angina pectoris; F71 Moderate intellectual disabilities; F25.9 Schizoaffective disorder, unspecified; G20 Parkinson's disease; G47.33 Obstructive sleep apnea (adult) (pediatric); I10 Essential (primary) hypertension; E11.9 Type 2 diabetes mellitus without complications; E78.5 Hyperlipidemia, unspecified; Y09 Assault by unspecified means; Z82.3 Family history of stroke; Z03.818 Encounter for observation for suspected exposure to other biological agents ruled out; Z79.899 Other long term (current) drug therapy
CPT/HCPCS: 31500; 36415; 36430; 71045; 71046; 71260; 80053; 81001; 82550; 82553; 82728; 83605; 83735; 84100; 84484; 85025; 85379; 85384; 85610; 86850; 86900; 86901; 86920; 87040; 87635; 92950; 93005; 93010; 93503; 94002; 96361; 96365; 99285; 99291; J0171; J0330; J0456; J0696; J1650; J2250; J2704; J3490; J7030; J7040; J7060; J7120; P9016